=== PATIENT | male | born 1950 | race Caucasian/White ===

== ENCOUNTER → 2017-08-17 | Outpatient (CLI) | payer OTHER, MEDICARE ==
[~2017-08-17] VITALS: Ht 185.4 cm; Wt 112.4 kg
[~2017-08-17] MED LIST: ACETAMINOPHEN325 M1 PO; ADVAIR 500-501 EACH; AMARYL4 MG; ASPIRIN81 M2; ATIVAN1 MG; CARDIZEM CD180 MG; COUMADIN 5 MG TA5 M1 PO; COZAAR 50 MG TA50 M2; CRESTOR10 MG; DEMADEX100 MG; DEPAKOTE ER500 MG; ENOXAPARIN120 MG/0.8 SC; FLOMAX0.4 MG PO; HIBICLENS120 ML; HYDROCHLOROTHIA25 M2; HYDROCODONE-AP1 EAC6; IBUPROFEN 200200 M1; KLOR-CON 1010 MEQ; LASIX 40 MG TAB40 M1 PO; LEXAPRO20 MG; MAGNESIUM GLUC500 M1; METFORMIN HCL500 MG; MICARDIS40 MG PO; PACERONE 200 M200 M1 PO; POTASSIUM20 PO; PROAIR HFA8.5 GM
--- NOTE | ~2017-08-17 | HPC ---
[facility] [place] [address] PAIN MANAGEMENT CONSULTATION Name: FADI ELLIOTT Room #: REG [facility] Damaris.#: [id number] Admission: 08/17/17 Attend Phys: Vick Ventura MD Discharge: Date of : 54 Report #: [id number] THIS REPORT FOR: //name// CC: Seferino Ventura DATE OF SERVICE: 08/17/2017 Followup visit for cervical radiculopathy. The patient is a pleasant gentleman who I saw over 2 years ago for cervical radiculopathy. Over the course of 2 months, he received a cervical epidural injection. His pain was reduced. A month or two later, he received his third injection. He reports that his pain relief was substantial and has not returned until just recently. He now has pain at a level of 5/10 that begins in his neck and radiates as before into his right arm. He describes it as a sharp, tingling, burning sensations worsened by certain positions of his arm and activities. He has been able to alleviate some of his pain with medication and stretching, but it still is enough to limit his activities. He has range of motion difficulties, particularly in rotation. MEDICATIONS: Coumadin, Depakote, Ativan, Lexapro, Advair, Flomax. ALLERGIES: None. PAST MEDICAL HISTORY: Positive for non-insulin dependent diabetes, atrial fibrillation for which he takes Coumadin. He has COPD, history of chronic headaches and depression. SOCIAL HISTORY: He is retired, does not use tobacco, drinks alcohol on special occasions. REVIEW OF SYSTEMS: Positive for pain primarily, denies chest pains, shortness of breath, but does have dyspnea on exertion related to his COPD. PHYSICAL EXAMINATION: Blood pressure 159/97, heart rate 73, respirations 20. BMI is 32. He has lost over 50 pounds following bariatric surgery 2 years ago after his treatment here in our clinic. CHEST: Clear. CARDIAC: Rhythm today was noted to be regular. He does not appear to be in atrial fibrillation. SPINE: Examination of the cervical spine reveals restricted range of motion due to muscle tension and spasm. He has reduction in neck extension and rotation to each side by about 30%. EXTREMITIES: Deep tendon reflexes are absent throughout the upper extremities consistent with his last visit. In the lower extremities, there is a slight [facility] [address] [place] [address] PAIN MANAGEMENT CONSULTATION Name: FADI ELLIOTT Room #: REG [facility] Damaris.#: [id number] Admission: 08/17/17 Attend Phys: Vick Ventura MD Discharge: Date of : 54 Report #: [id number] increase from previous visit in his knee reflexes at 2+, but there is no evidence of clonus. Strength throughout the upper and lower extremities is judged to be normal with no asymmetry. MRI shows cervical degenerative disk disease with neural foraminal stenosis. IMPRESSION: Cervical radiculopathy with excellent response to cervical epidural injection at C6-C7, last in 05/2015. RECOMMENDATIONS: 1. These symptoms have only been going on for about 10 days. I would like to wait 2 weeks and if he is not better, then bring him back in for cervical epidural injection given his good response. He was given instructions for gentle range of motion exercises. If he is not better in 2 weeks, he will stop his Coumadin 5 days before, come in for an INR check before, and I will repeat the cervical epidural injection. Questions were asked and answered. By: 1617 1858 Vick Ventura MD /nt
[2017-08-17 13:43] VITALS: BP 159/97
== END ==
LOC: PAIN 07:24
DX: M54.12 Radiculopathy, cervical region (principal); E11.9 Type 2 diabetes mellitus without complications; J44.9 Chronic obstructive pulmonary disease, unspecified; I48.91 Unspecified atrial fibrillation; F32.9 Major depressive disorder, single episode, unspecified

== ENCOUNTER → 2018-06-29 | Outpatient (CLI) | payer OTHER, MEDICARE | LOC: RAD 14:44 | DX: M25.561 Pain in right knee (principal) ==

== ENCOUNTER → 2018-07-05 | Outpatient (CLI) | payer OTHER, MEDICARE ==
[~2018-07-05] VITALS: Ht 185.4 cm; Wt 116.0 kg
[~2018-07-05] MED LIST changes: +NORCO 5-325 TA1 EACH PO
--- NOTE | ~2018-07-05 | HPC ---
[facility] [place] [address] PAIN MANAGEMENT CONSULTATION Name: FADI ELLIOTT Room #: REG CL M..#: [id number] Admission: 07/05/18 ������������������ Attend Phys: Vick Ventura MD Discharge: ������������������ Date of : 54 Report #: [id number] THIS REPORT FOR: //name// CC: Seferino Ventura DATE OF SERVICE: 07/05/2018 Followup visit for chronic right knee pain. This is a followup visit for the patient who complains of pain in the right knee. Plain film x-rays have been performed and showed mild degenerative changes. We do not have advanced imaging and an MRI may show more significant changes. He has had a favorable response to previous knee injection and is preparing to travel to [facility] and would like to repeat the injection today. He has responded nicely to injections in the past including a cervical epidural injection. PQRS: 1. He has a history of osteoarthritis. 2. He is obese with a BMI of 33.8. Weight loss strategies have been discussed. 3. He is not hypertensive nor does he take medication. 4. He is on the blood thinner, warfarin due to a history of atrial fibrillation. 5. No history of chronic opioid use, although we have agreed that an emergency prescription for [place] if he has severe pain, particularly during his travel would be reasonable and I have agreed to provide him #30 tablets of hydrocodone 5/325. SOCIAL HISTORY: He denies use of tobacco, drinks wine in a social setting every other day or so. PHYSICAL EXAMINATION: Pleasant gentleman, outgoing. Blood pressure 105/67, heart rate 77, mildly overweight with a BMI of 33.8. He walks with antalgic features. The knee is painful and tender with movements, particularly lateral movements and medial movement. There does not appear to be any instability with drawer test. No effusion or swelling is present. X-ray is essentially negative other than some mild degenerative changes. IMPRESSION: Severe right knee pain with osteoarthritis. RECOMMENDATIONS: Knee injection under fluoroscopic guidance. If not improved, then we will send him off for an orthopedic evaluation. DESCRIPTION OF PROCEDURE: He was taken to the fluoroscopic suite. Skin prepped [address] [address] PAIN MANAGEMENT CONSULTATION Name: FADI ELLIOTT BABAR Room #: REG Veronica Garay#: [id number] Admission: 07/05/18 ������������������ Attend Phys: Vick Ventura MD Discharge: ������������������ Date of : 54 Report #: [id number] with ChloraPrep. A 25-gauge needle was gently advanced into the joint space in subpatellar medial approach. 0.25 mL of Omnipaque was injected demonstrating arthrogram followed by 4 mL of 0.5% bupivacaine and 40 mg of triamcinolone. He tolerated the procedure well. Pain was 0 in recovery room. Followup visit as needed. ��������������������������������������������� ���������������������������������������� By: ��������������������������������������������� 1500 2354 Vick Ventura MD /nt
[2018-07-05 09:21] LABS: PROTIME 10.5 Seconds (9.3-11.4)
[2018-07-05 10:06] VITALS: BP 105/67
--- NOTE | 2018-07-05 10:32 | NUR ---
Pain Clinic Assessment: 1. History of Osteoarthritis: History of Rheumatoid Arthritis: 2. Height: 6 ft. 1 in. 185.4 cm. Weight: 255.8 lb. oz. 116.030 kg. Patient's BMI: 33.8 3. Vital Signs: BP: 105/67 Pulse: 77 Resp: 16 Temp: 02 Sat: 96 ECG Mon: 4. Pain Intensity: 5 5. Fall Risk: Dizziness: N Needs help standing or walking: N Fallen in the last 3 months: N Fall risk comments: 6. Patient on Blood Thinner: Warfarin (Coumadin) 7. History of Hypertension: N 8. Opioid Therapy greater than 6 weeks: N Opiate Contract Signed: 9. Risk Assessment Tool Provided: 10. Functional Assessment Tool: 11. Recreational Drug Use: Never Drug Type: Tobacco Use: Never Smoker Tobacco Type: Amount or Packs/day: How Many Years: Alcohol Use: Yes Frequency: Quant: 6 OZ WINE QOD
== END | disposition home or self-care (01) ==
LOC: PAIN 07:01
PROVIDERS: Anesthesiology Pain Medicine
DX: M17.11 Unilateral primary osteoarthritis, right knee (principal); G89.29 Other chronic pain; E66.09 Other obesity due to excess calories; I48.91 Unspecified atrial fibrillation; Z68.33 Body mass index [BMI] 33.0-33.9, adult; Z79.01 Long term (current) use of anticoagulants

== ENCOUNTER 2019-04-11 16:59 | Inpatient (IN) | payer OTHER, MEDICARE ==
[~2019-04-11] VITALS: Ht 182.9 cm; Wt 117.9 kg
[~2019-04-11 16:59] MED LIST changes: +DEPAKOTE ER500 M1 PO; -DEPAKOTE ER500 MG; -LEXAPRO20 MG; +LEXAPRO20 MG PO
[2019-04-11 17:14] VITALS: BP 130/96
[2019-04-11 17:53] LABS: ABSOLUTE NEUTROPHILS 5.8 thou/uL (1.4-8.2); EOSINOPHILS 0.9 % (0.0-3.0); HEMATOCRIT 43.9 % (42.0-52.0); HEMOGLOBIN 14.2 gm/dL (14.0-18.0); MCH 30.8 pg (26.0-34.0); MCHC 32.4 g/dL (28.0-37.0); MCV 95.2 fL (80.0-100.0); MONOCYTES 8.3 % (1.0-8.0); PLATELET COUNT 321 thou/uL (150-400); POLYS 66.8 % (36.0-66.0); RBC 4.61 mil/uL (4.50-6.00); RDW 14.1 % (10.5-14.5); WBC 8.7 thou/uL (4.0-11.0)
[2019-04-11 18:00] LABS: POTASSIUM 4.3 mmol/L (3.5-5.1)
[2019-04-11 18:07] LABS: ALBUMIN 3.8 g/dL (3.4-5.0); TOTAL BILIRUBIN 0.6 mg/dL (<0.1-1.0); TOTAL PROTEIN 7.2 g/dL (6.4-8.2)
[2019-04-11 18:21] LABS: APTT 27.3 Seconds (24.5-32.8); INR 1.3; PROTIME 13.9 Seconds (9.3-11.4)
[2019-04-11 19:48] VITALS: BP 123/67
[2019-04-11 20:36] VITALS: BP 105/63
[2019-04-11 20:59] VITALS: BP 134/80
--- NOTE | 2019-04-11 21:00 | NUR ---
Pt. admitted to the unit from the emergency room accompanied by staff. He is alert and oriented. Denies any kind of pain or discomfort at this time. Ambulated to the bathroom with standby assistance. No active bleeding observed. Admission assessment and history is completed.
[2019-04-11] MEDS ORDERED: COUMADIN6 MG PO (21:02)
[2019-04-12 00:52] VITALS: BP 115/75
[2019-04-12 05:02] VITALS: BP 132/84
--- NOTE | 2019-04-12 05:04 | NUR ---
Pt. rested quietly during the night when checked on during frequent rounds. He offers no c/o pain and no active bleeding observed.
[2019-04-12 06:32] LABS: HEMATOCRIT 34.5 % (42.0-52.0); MCHC 32.4 g/dL (28.0-37.0); MCV 95.7 fL (80.0-100.0); RBC 3.61 mil/uL (4.50-6.00); WBC 7.8 thou/uL (4.0-11.0)
[2019-04-12 06:44] LABS: HEMOGLOBIN 11.2 gm/dL (14.0-18.0)
[2019-04-12 07:00] LABS: CALCIUM 8.1 mg/dL (8.5-10.1); CREATININE 0.9 mg/dL (0.7-1.3); POTASSIUM 3.7 mmol/L (3.5-5.1)
[2019-04-12 07:42] VITALS: BP 135/70
--- NOTE | 2019-04-12 10:12 | NUR ---
INITIAL ASSESSMENT: Pt evaluated for d/c planning needs. Reviewed chart and spoke with nurse, pt and pt's friend. Pt is alert and oriented. Pt lives alone in house and was independent with ADL's prior to admission to the hospital. Pt has walker and cane at home, but does not use them. Pt said he has CPAP at home, but has not been using that recently. Pt has not had home health in the past. Pt plans on returning home on d/c from hospital. Will remain available to assist as needed.
[2019-04-12 11:20] VITALS: BP 136/85
--- NOTE | 2019-04-12 18:43 | NUR ---
Assumed care approx. 0700 this AM. Patient home meds restarted besides coumadin per Dr. Conde request via telephone order. Patient given 0.5 mg PO ativan for anxiousness. Plan for EGD/ colon tomorrow, consent signed. Been waiting on golytely from pharmacy for almost 2 hours... A hold acknowledge has been placed in the computer for the medication. Full liquid diet started this afternoon. Patient will be NPO at midnight for procedure. Patient progressing toward goals.
[2019-04-12 19:47] VITALS: BP 121/82
[2019-04-13 04:45] VITALS: BP 143/93
--- NOTE | 2019-04-13 05:09 | NUR ---
Patient advised he had a headache that was worseining, and rated it 7/10. Nursing contacted the on-call provider and got an order for 1000mg Tylenol PRN, which was administered. Patient later advised his pain was partially relieved at 5/10 on the numeric pain scale. Nursing will continue to monitor.
[2019-04-13 07:58] VITALS: BP 145/88
[2019-04-13 15:15] LABS: HEMATOCRIT 36.1 % (42.0-52.0); HEMOGLOBIN 11.8 gm/dL (14.0-18.0)
[2019-04-13 15:33] VITALS: BP 113/69
--- NOTE | 2019-04-13 19:31 | NUR ---
PATIENT HAD EGD AND COLONOSCOPY TODAY TOLERATED WELL. NO BLEEDING NOTED. PROGRESSING TOWARDS POC GOALS.
[2019-04-13 20:34] VITALS: BP 139/81
--- NOTE | 2019-04-14 04:05 | NUR ---
SLEPT PART OF SHIFT. UP WITH STEADY GAIT. DENIES COMPLAINTS OF PAIN OR SHORTNESS OF AIR. DENIES ANY GI BLEEDING THIS SHIFT. WORKING ON GOALS AND PLAN OF CARE FOR NOC. PROGRESSING SLOWLY TOWARDS DISCHARGE GOALS. CONTINUE TO ASSES CLOSELY.
[2019-04-14 04:50] VITALS: BP 147/70
[2019-04-14 07:23] VITALS: BP 133/81
[2019-04-14] MEDS ORDERED: LORAZEPAM 0.50.5 MG PO (08:37)
[2019-04-14] MEDS ORDERED: FLOMAX0.4 MG PO (08:37)
[2019-04-14] MEDS ORDERED: DIVALPROEX SOD500 M1 PO (08:37)
[2019-04-14] MEDS ORDERED: PROTONIX40 M1 PO (08:37)
[2019-04-14] MEDS ORDERED: TYLENOL EXTRA500 MG PO (08:37)
[2019-04-14] MEDS ORDERED: LEXAPRO20 MG PO (08:37)
[2019-04-14 08:56] VITALS: BP 133/81
[2019-04-14 11:34] VITALS: BP 145/86
--- NOTE | 2019-04-14 13:31 | NUR ---
progressing towards poc goals. dc to home now.
--- NOTE | 2019-04-18 19:36 | H ---
[facility] [place] [address] [place] [address] HISTORY AND PHYSICAL Name: FADI ELLIOTT Room #: 360-P [facility] IN M.R.#: [id number] Admission: 04/11/19 Attend Phys: Arelis Alfaro MD Discharge: 04/14/19 Date of : 54 Report #: [id number] THIS REPORT FOR: //name// CC: Seferino Alfaro DATE OF SERVICE: 04/11/2019 HISTORY OF PRESENT ILLNESS: This is a patient well known to my service, 68 years of age with GI bleed. This is a patient who came into the office and was pale, weakened and examination confirmed an obvious melanotic bloody stool on rectal examination, at which point he was referred to the Emergency Room and subsequently admitted. PAST MEDICAL HISTORY: Significant for previous bariatric surgery. He has hypertension, atrial fibrillation and he is on Coumadin. He has had a previous tonsillectomy. 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 MEDICATIONS: List includes warfarin, Depakote, Lexapro, Coumadin, Ativan and Flomax. ALLERGIES: No known allergies. FAMILY HISTORY: Noncontributory. SOCIAL HISTORY: No smoking, but does use alcohol socially. REVIEW OF SYSTEMS: No chest discomfort or tightness in his chest, no shortness of breath, but is weakened. PHYSICAL EXAMINATION: GENERAL: In the office showed him to have stable vital signs; however, he looked pale and was orthostatic symptom dalal when he stood up. HEENT: Otherwise, negative. NECK: Supple, without thyromegaly or adenopathy. CHEST: Clear. CARDIOVASCULAR: Showed a regular rhythm without murmur. ABDOMEN: Soft and nontender. EXTREMITIES: Negative. RECTAL: Showed hemoccult positive stool, it was obviously bloody. LABORATORY PARAMETERS: Show a hemoglobin of 14 with an INR of 1.3. ASSESSMENT: This is a patient with gastrointestinal bleed, currently stable with an upper gastrointestinal source seems most likely whether this is related to an ulcer or somehow related to his bariatric surgery is not clear. I do not [facility] [address] [address] HISTORY AND PHYSICAL Name: EARLFADI BABAR Room #: 360-P [facility] IN M.R.#: [id number] Admission: 04/11/19 Attend Phys: Arelis Alfaro MD Discharge: 04/14/19 Date of : 54 Report #: [id number] have any history to suggest that he has cirrhosis or varices seem less likely, but EGD is needed along with acid suppression and inpatient management. <ELECTRONICALLY SIGNED> By: Seferino Conde MD 04/18/19 1936 1042 1230 Seferino Conde MD /PMT
--- NOTE | 2019-04-19 09:26 | PATH ---
[facility] [place] [place] [address] PATHOLOGY RPT PROCEDURE Name: BOB ELLIOTT BABAR Room #: 360-P [facility] IN M.R.#: [id number] Admission: 04/11/19 Date of : 54 Discharge: 04/14/19 Report #: [id number] Path Case #: [id number] [facility] Accession Number: [id number] . 01 Material submitted: . PART A: colon - POLYP AT PROXIMAL ASCENDING COLON X2. Modifiers: proximal, ascending PART B: hepatic flexure - POLYP AT HEPATIC FLEXURE PART C: colon - POLYP AT DISTAL TRANSVERSE COLON. Modifiers: distal, transverse PART D: colon - POLYP AT DESCENDING COLON. Modifiers: descending . 01 Clinical history: . Melena . 02 Diagnosis: A. Colon, proximal ascending, biopsy: - Adenomatous polyps, two. . B. Colon, hepatic flexure, biopsy: - Adenomatous polyp. . C. Colon, distal transverse, biopsy: - Adenomatous polyp. . D. Colon, descending, biopsy: - Hyperplastic polyp. (SKM:mike; 04/18/2019) [facility] 04/18/2019 0826 Local . 02 Electronically signed: . Bob Rao MD, Pathologist NPI- [id number] . 01 Gross description: . A. The specimen is received in formalin, labeled "Bob Elliott, polyp at proximal ascending colon". Received are two segments of pale langston soft tissue ranging in size from 0.3 to 0.4 cm in maximum dimensions. The specimen is submitted entirely in cassette A1. . B. The specimen is received in formalin, labeled "Bob Elliott, polyp at hepatic flexure". Received is a segment of pale langston soft tissue measuring 0.4 cm in maximum dimensions. The specimen is submitted entirely in cassette B1. . C. The specimen is received in formalin, labeled "Bob Elliott, polyp at distal transverse colon". Received [place] [address] PATHOLOGY RPT PROCEDURE Name: BOB ELLIOTT Room #: 360-P [facility] IN M.R.#: [id number] Admission: 04/11/19 Date of : 54 Discharge: 04/14/19 Report #: [id number] Path Case #: [id number] brown soft tissue measuring 0.8 x 0.6 x 0.5 cm in greatest dimensions. The surgical margin is inked and the segment is bisected. The specimen is submitted entirely in cassette C1. . D. The specimen is received in formalin, labeled "Bob Elliott, polyp at descending colon". Received is a segment of pale langston soft tissue measuring 0.4 cm in maximum dimensions. The specimen is submitted entirely in cassette D1. (CAA; 04/15/2019) QA/QA 04/15/2019 1150 Local . 02 Pathologist provided ICD-10: D12.2, D12.3, K63.5 . 02 CPT . 435508, 585303, 306059, 231335 Specimen Comment: A courtesy copy of this report has been sent to [phone] Specimen Comment: Report sent to Specimen Comment: A duplicate report has been generated due to demographic updates. Performed at: [address], [place] [id number] MD Butch Morales MD Phone: [phone] Performed at: [address] [id number] MD Marjorie Land MD Phone: [phone]
[2019-04-20] MEDS ORDERED: TRAZODONE 150150 M1 PO (00:22)
--- NOTE | 2019-04-20 05:34 | P ---
[facility] [place] [address] PROCEDURE REPORT Name: FADI ELLIOTT Room #: 360-P [facility] IN M.R.#: [id number] Admission: 04/11/19 Attend Phys: Arelis Alfaro MD Discharge: 04/14/19 Date of : 54 Report #: [id number] THIS REPORT FOR: //name// CC: Kelechi Alfaro MD PROCEDURE: Diagnostic esophagogastroduodenoscopy. He is a patient of Dr. Kelechi Conde and Dr. Arelis Nick. INDICATIONS FOR PROCEDURE: Evaluate melena of undetermined etiology. The patient is status post gastric bypass surgery for weight loss purposes. Informed consent for this procedure was obtained prior to the administration of any medication. The risks of the procedure, which include bleeding, perforation, infection, complications of sedation and the possibility I could miss something were explained to the patient, he has indicated his consent by signing. Propofol was slowly titrated before and during this procedure for patient comfort by the Anesthesia service. DESCRIPTION OF PROCEDURE: With the patient in the left lateral decubitus position, the Olympus upper videoscope was introduced through the upper esophageal sphincter and advanced under direct visualization to the depth of insertion of the scope. Findings are noted on withdrawal of the scope. The visualized small intestinal mucosa appears intact without any evidence of any erythema or ulceration. The stomach remnant as the patient is status post gastric bypass surgery appears normal except for the following: There are 3 white based flat nonbleeding ulcers on the lesser curvature of the stomach that are not bleeding and have no stigmata of recent bleed visible. Other than that, the gastric remnant appears normal. The scope was withdrawn into the esophagus. The Z-line is appropriately located at the top of the gastric folds and appears normal. The esophageal mucosa appears normal throughout its entirety. The scope was withdrawn. The patient was turned for colonoscopy. IMPRESSION: 1. Evidence of gastric bypass surgery noted. 2. Three nonbleeding flat white based ulcerations without stigmata of recent bleed noted in the gastric remnant. 3. Normal esophageal mucosa. RECOMMENDATIONS: As follows: I would recommend continuing proton pump inhibitors and monitoring his H and H closely. We will check a stool for H. pylori antigen and we will proceed with colonoscopy at this time. [address] [address] PROCEDURE REPORT Name: ELLIOTTFADI Room #: 360-P [facility] IN ..#: [id number] Admission: 04/11/19 Attend Phys: Arelis Alfaro MD Discharge: 04/14/19 Date of : 54 Report #: [id number] Thank you very much once again for allowing me to participate in his care, Dr. Conde and Dr. Nick. <ELECTRONICALLY SIGNED> By: Padma Arriaga DO 04/20/19 0534 1359 1645 Padma Arriaga DO /nt
--- NOTE | 2019-04-20 05:34 | P ---
[facility] [place] [address] PROCEDURE REPORT Name: FADI ELLIOTT Room #: 360-P [facility] IN M.R.#: [id number] Admission: 04/11/19 Attend Phys: Arelis Alfaro MD Discharge: 04/14/19 Date of : 54 Report #: [id number] THIS REPORT FOR: //name// CC: Kelechi Alfaro MD DATE OF SERVICE: 04/13/2019 PROCEDURE: Colonoscopy with snare polypectomy. He is a patient of Dr. Kelechi Conde and Dr. Arelis Alfaro. INDICATION FOR PROCEDURE: After the risks of the procedure were explained to the patient, he indicated his consent to proceed by signing. The following risks include but are not limited to bleeding, perforation, infection, complications of sedation and the possibility I could miss something were explained to the patient. DESCRIPTION OF PROCEDURE: With the patient in the left lateral decubitus position, a digital rectal exam was done and no abnormalities were palpated. Then, the Olympus colonoscope was introduced through the anal sphincter and advanced under direct visualization to the terminal ileum. Findings are noted on withdrawal of the scope. The terminal ileal mucosa appears normal. Cecum, normal mucosa. In the proximal ascending colon, there were 2 small polyps, both less than 5 mm in size that were removed in toto with a hot snare and sent to pathology lab. Good hemostasis was noted after those polypectomies. The remaining ascending colonic mucosa appears normal. Hepatic flexure, normal mucosa. Transverse colon, in the distal transverse colon, there is a small polyp less than 5 mm in diameter that was removed in toto with a hot snare and sent to pathology lab. Good hemostasis was noted after that polypectomy. The remaining transverse colonic mucosa appears normal. Splenic flexure, normal mucosa. Descending colon, at approximately 50 cm in the descending colon, there is a fourth polyp. It is less than 5 mm in size and it is ensnared and removed and sent to pathology lab. Good hemostasis was noted after all polypectomies. The remaining descending colonic mucosa appears normal. Sigmoid colon, there are a few uncomplicated diverticula, but they are very rare in the sigmoid colon. Rectum, normal mucosa. Retroflex view did not reveal any further abnormalities. The scope was withdrawn. The patient went to the recovery area in stable condition. He tolerated the procedure well. IMPRESSION: 1. Multiple colon polyps removed from proximal ascending, distal transverse and descending colon as above and sent to pathology lab. 2. Uncomplicated rare sigmoid diverticula were seen. [address] [address] PROCEDURE REPORT Name: FADI ELLIOTT BABAR Room #: 360-[facility] IN M.R.#: [id number] Admission: 04/11/19 Attend Phys: Arelis Alfaro MD Discharge: 04/14/19 Date of : 54 Report #: [id number] 3. Other than that, normal colonoscopic exam to the terminal ileum. Recommendations are as follows: I am not sure that the source of this patient's melena has been explained by EGD or colonoscopy and I would recommend that a small intestinal video capsule be done to evaluate the small intestine further for sources of bleeding and melena. Thank you very much once again for allowing me to participate in his care. I must mention also that I saw no evidence of melanotic stool in his colon, but this was after a full colon prep. <ELECTRONICALLY SIGNED> By: Padma Arriaga DO 04/20/19 0534 1404 1636 Padma Arriaga DO /nt
--- NOTE | 2019-04-30 08:42 | D ---
[facility] [place] [address] DISCHARGE SUMMARY Name: FADI ELLIOTT Room #: 360-[facility] IN .R.#: [id number] Admission: 04/11/19 Attend Phys: Arelis Alfaro MD Discharge: 04/14/19 Date of : 54 Report #: [id number] THIS REPORT FOR: //name// CC: Seferino Alfaro DATE OF SERVICE: 04/13/2019 ATTENDING PHYSICIAN: Dr. Alfaro DICTATING PHYSICIAN: Dr. Alfaro. REASON FOR HOSPITALIZATION: GI bleed and black tarry stools with low blood pressure. HISTORY OF PRESENT ILLNESS: The patient is a 68-year-old gentleman with known history of morbid obesity with gastric bypass surgery and chronic atrial fibrillation, on Coumadin, presented to the Emergency Room having blood in his stools. The patient was noted to be orthostatic and had melanotic stools. The patient was admitted to the hospital, kept n.p.o. and had upper and lower GI workup. The patient had a normal colonoscopy. The upper endoscopy showed evidence of gastric ulcers with no evidence of active bleeding. The patient was taken off the Coumadin and he remained medically stable with his hemoglobin remaining stable at around 11 grams throughout his stay. The patient tolerated regular diet and was discharged to home to follow up with Dr. Kelechi Conde in a week's time. FINAL DIAGNOSES: 1. Lower gastrointestinal bleed, suspect from small bowel. 2. Atrial fibrillation, to hold Coumadin. 3. Orthostatic hypotension, which improved. 4. Obesity. 5. Gastric ulcers. DISPOSITION: The patient is being discharged to home to continue on regular diet and to stay off the Coumadin and follow up with Dr. Kelechi Conde in a week's time. <ELECTRONICALLY SIGNED> By: Arelis Alfaro MD 04/30/19 0842 [id number] [id number] Arelis Alfaro MD /nt
== END 2019-04-14 13:37 | disposition home or self-care (01) | DRG 378 ==
LOC: ER 16:59 → 3W 18:58 → EROBS 18:58 → 3W 20:46
PROVIDERS: Emergency Medicine; Internal Medicine; ADMIT Internal Medicine
PROC: 0DJ08ZZ Inspection of Upper Intestinal Tract, Via Natural or Artificial Opening Endoscopic (ICD-10-PCS; principal; 2019-04-11)
PROC: 0DBL8ZZ Excision of Transverse Colon, Via Natural or Artificial Opening Endoscopic (ICD-10-PCS; 2019-04-13)
PROC: 0DBK8ZZ Excision of Ascending Colon, Via Natural or Artificial Opening Endoscopic (ICD-10-PCS; 2019-04-13)
PROC: 0DBM8ZZ Excision of Descending Colon, Via Natural or Artificial Opening Endoscopic (ICD-10-PCS; 2019-04-13)
DX: K57.31 Diverticulosis of large intestine without perforation or abscess with bleeding (principal); D62 Acute posthemorrhagic anemia; K25.4 Chronic or unspecified gastric ulcer with hemorrhage; I95.1 Orthostatic hypotension; I48.91 Unspecified atrial fibrillation; I10 Essential (primary) hypertension; E66.9 Obesity, unspecified; F32.9 Major depressive disorder, single episode, unspecified; D64.9 Anemia, unspecified; Z68.35 Body mass index [BMI] 35.0-35.9, adult; Z98.84 Bariatric surgery status; Z79.899 Other long term (current) drug therapy
CPT/HCPCS: 10879; 62110; 62900; 70005

== ENCOUNTER → 2019-04-18 | Outpatient (CLI) | payer OTHER, MEDICARE ==
[~2019-04-18] MED LIST changes: +BUPROPION XL300 MG PO; +COUMADIN6 MG PO; +COZAAR 25 MG TA25 M1 PO; +DILTIAZEM ER180 M2 PO; +DIVALPROEX SOD500 M1 PO; +LORAZEPAM 0.50.5 MG PO; +LOVASTATIN 20 M20 MG PO; +PROTONIX40 M1 PO; +PROTONIX40 M2 PO; +TRAZODONE 150150 M1 PO; +TYLENOL EXTRA500 MG PO
[2019-04-18 18:01] LABS: ALBUMIN 3.9 g/dL (3.4-5.0); CALCIUM 9.3 mg/dL (8.5-10.1); CREATININE 1.4 mg/dL (0.7-1.3); POTASSIUM 3.9 mmol/L (3.5-5.1); TOTAL BILIRUBIN 2.5 mg/dL (<0.1-1.0); TOTAL PROTEIN 7.3 g/dL (6.4-8.2)
== END ==
LOC: LAB 16:46
PROVIDERS: Internal Medicine
DX: M47.814 Spondylosis without myelopathy or radiculopathy, thoracic region (principal); M48.04 Spinal stenosis, thoracic region; J98.11 Atelectasis

== ENCOUNTER 2019-04-19 19:51 | Inpatient (IN) | payer OTHER, MEDICARE ==
[~2019-04-19] VITALS: Ht 182.9 cm; Wt 121.1 kg
--- NOTE | ~2019-04-19 | D ---
[facility] [place] [address] [address] DISCHARGE SUMMARY Name: FADI ELLIOTT BABAR Room #: 360-P ADM IN M.R.#: [id number] Admission: 04/19/19 Attend Phys: Angel Luis Oneil Discharge: Date of : 54 Report #: [id number] THIS REPORT FOR: //name// CC: Seferino Conde FINAL DIAGNOSES: 1. Chronic cholecystitis. 2. Atrial fibrillation. 3. Pulmonary embolus. 4. Anemia due to gastrointestinal blood loss. 5. Acute hypoxic respiratory failure. 6. Moderate protein-calorie malnutrition. HOSPITAL COURSE: The patient was admitted from home with chills and concern for possible infection. Ultimately, a diagnosis of cholecystitis was made. He was seen by [facility] Surgery Services along with ID. At initial admission, he had difficulty with rapid atrial fibrillation and Cardiology was involved. After investigation and studies, ultimately underwent a laparoscopic cholecystectomy by Dr. Solano. Pathology revealed chronic cholecystitis. There are still concerns for other underlying diseases and he had additional lab data and CT imaging. Only other pertinent finding on CT chest was bilateral pulmonary emboli and a 1.5 cm on nonspecific lymph node. He was treated with heparin for anticoagulation. He underwent M2 capsule study of the small bowel with no signs of bleeding. Coumadin was reinitiated. Hemoglobin remained stable and actually improved with iron infusions. He finished a course of IV and then oral antibiotics. He had no other interval complication. By the time of discharge, his INR was 2.1. He was tolerating a regular diet, walking the halls and has been weaned off oxygen. He had no further fever, chills or elevated white count. Previous blood cultures were all negative. PHYSICAL EXAMINATION: VITAL SIGNS: On the day of discharge, his vital signs were stable. LUNGS: Clear. HEART: Regular. ABDOMEN: Soft, normoactive bowel sounds. EXTREMITIES: No edema. DISPOSITION: He is discharged to home with diet and activity as tolerated, resume all home medications plus restarting Coumadin 7 mg alternating with 10 mg with INRs through Dr. Treadwell's office. Follow up with Dr. Conde in 10 days. By: 1154 1225 Daniel Yang MD /nt
--- NOTE | ~2019-04-19 | O ---
[facility] [place] [address] OPERATIVE REPORT Name: FADI ELLIOTT Room #: 356-P ADM IN M.R.#: [id number] Admission: 04/19/19 Attend Phys: Angel Luis Oneil Discharge: Date of : 54 Report #: [id number] THIS REPORT FOR: //name// CC: Kelechi Arriaga DO PREOPERATIVE DIAGNOSES: Cholecystitis with cholelithiasis. POSTOPERATIVE DIAGNOSES: Cholecystitis with cholelithiasis with finding of a small stone in the common duct. SURGEON: Harjinder Solano MD ANESTHESIA: General anesthesia. COMPLICATIONS: None. ESTIMATED BLOOD LOSS: 10 mL. PROCEDURE NOTE: With the patient under general anesthesia, abdomen was prepped and draped in sterile fashion. Transverse incision was made in the epigastrium about 3 inches above the umbilicus due to the patient's obese abdomen. The incision was about 2 cm. After incising through the skin fascia was identified. Fascia was then opened under visualization, 0 Vicryl suture placed on the fascia for retraction. Veress needle was then placed through the peritoneum. Abdominal cavity was insufflated with CO2. After creating pneumoperitoneum, as 11 mm trocar was placed through the fascia into the peritoneum. Under visualization, two 5 mm trocars were placed in the right upper quadrant and a 5 mm trocar in right epigastrium. The patient did have quite a bit of fat in the abdomen. The gallbladder was identified. The gallbladder did have some adhesions proximally. Gallbladder was also fairly distended. A needle was used to aspirate the bile. The bile was sent for culture. The bile did not look purulent to me. The proximal part of the gallbladder was then identified. The cystic duct was isolated. Common duct was underneath a significant amount of fat that was not able to be visualized. Cystic duct was moderately dilated. A clip was placed in junction of cystic duct to the gallbladder. Opening was made in the cystic duct. Cholangiogram catheter was placed. Fluoroscopic cholangiogram was obtained. Common duct filled out well and there is a persistent filling defect that I can see measuring about 2 x 3 mm. I did repeat cholangiogram by flushing the duct with saline and then reinjecting. The defect seemed to persist in, the distal duct. There was no obstruction. Dye flowed into the duodenum. Cholangiogram catheter identifying the cystic duct. The cystic duct did not appear dilated on the cholangiogram. The cholangiogram catheter was then removed. The proximal cystic duct was then clipped x 2 and then divided. Cystic artery was then isolated, clipped x 2 proximally and once [address] [address] OPERATIVE REPORT Name: FADI ELLIOTT Room #: 356-P [facility] IN M.R.#: [id number] Admission: 04/19/19 Attend Phys: Angel Luis Oneil Discharge: Date of : 54 Report #: [id number] distally and then divided. Gallbladder was able to be freed without difficulty. The gallbladder placed in specimen bag. Gallbladder was retrieved through the 11 mm trocar site. Gallbladder was opened, rest of the bile suctioned out and then the fascia had to be enlarged slightly and then the gallbladder with the stone came out. The gallbladder contained multiple stones. There were several smaller size stones that kind of resembled the stone defect that I see in the duct. Liver bed was checked, hemostasis excellent. Trocars removed. CO2 was evacuated. The fascia defect at the 11 mm trocar was closed with [id number] 0 Vicryl, 5-0 PDS was used to close skin incision. Steri-Strip, Band-Aids applied. The patient tolerated the procedure well. By: 1434 1513 Harjinder Solano MD /nt
[~2019-04-19 19:51] MED LIST changes: -BUPROPION XL300 MG PO; -COZAAR 25 MG TA25 M1 PO; -DILTIAZEM ER180 M2 PO; -LOVASTATIN 20 M20 MG PO; -PROTONIX40 M2 PO; -TRAZODONE 150150 M1 PO
[2019-04-19 19:56] VITALS: BP 121/86
[2019-04-19 20:47] LABS: HEMATOCRIT 38.4 % (42.0-52.0); HEMOGLOBIN 12.7 gm/dL (14.0-18.0); MCH 31.1 pg (26.0-34.0); MCHC 33.2 g/dL (28.0-37.0); MCV 93.8 fL (80.0-100.0); PLATELET COUNT 382 thou/uL (150-400); RBC 4.09 mil/uL (4.50-6.00); RDW 14.3 % (10.5-14.5); WBC 6.7 thou/uL (4.0-11.0)
[2019-04-19 21:01] LABS: ANION GAP 10 mmol/L (7-16); BUN 25 mg/dL (7-18); CALCIUM 8.8 mg/dL (8.5-10.1); CHLORIDE 100 mmol/L (98-107); CO2 25 mmol/L (21-32); CREATININE 1.1 mg/dL (0.7-1.3); GLUCOSE 149 mg/dL (74-106); PROTIME 10.6 Seconds (9.3-11.4); SODIUM 135 mmol/L (136-145)
[2019-04-19 21:11] LABS: ALBUMIN 3.5 g/dL (3.4-5.0); SGOT 60 U/L (15-37); SGPT 140 U/L (30-65); TOTAL BILIRUBIN 1.1 mg/dL (<0.1-1.0); TOTAL PROTEIN 7.5 g/dL (6.4-8.2); TROPONIN-I <0.06 ng/mL (<0.06)
[2019-04-19 22:12] LABS: ABSOLUTE NEUTROPHILS 3.6 thou/uL (1.4-8.2); PLATELET ESTIMATE NORMAL
[2019-04-20] VITALS (36 sets, daily range): BP systolic 107–166; BP diastolic 56–112
[2019-04-20] MEDS ORDERED: DILTIAZEM ER180 M2 PO (00:12)
[2019-04-20] MEDS ORDERED: LOVASTATIN 20 M20 MG PO (00:19)
[2019-04-20] MEDS ORDERED: COZAAR 25 MG TA25 M1 PO (00:19)
[2019-04-20] MEDS ORDERED: BUPROPION XL300 MG PO (00:20)
[2019-04-20] MEDS ORDERED: PROTONIX40 M2 PO (00:21)
[2019-04-20] MEDS ORDERED: TRAZODONE 150150 M1 PO ×2 (00:22)
[2019-04-20 02:37] LABS: HEMATOCRIT 34.7 % (42.0-52.0); HEMOGLOBIN 11.1 gm/dL (14.0-18.0); MCHC 31.9 g/dL (28.0-37.0); MCV 94.1 fL (80.0-100.0); RBC 3.68 mil/uL (4.50-6.00); RDW 14.5 % (10.5-14.5); WBC 6.5 thou/uL (4.0-11.0)
[2019-04-20 03:08] LABS: ALBUMIN 2.8 g/dL (3.4-5.0); CALCIUM 8.2 mg/dL (8.5-10.1); CREATININE 0.9 mg/dL (0.7-1.3); POTASSIUM 4.3 mmol/L (3.5-5.1); TOTAL PROTEIN 6.3 g/dL (6.4-8.2)
[2019-04-20 06:43] LABS: AMP/METHAMP Negative (Negative); BARBITURATES Negative (Negative); BENZODIAZEPINES Negative (Negative); COCAINE Negative (Negative); METHADONE Negative (Negative); OPIATES Negative (Negative); PCP Negative (Negative)
--- NOTE | 2019-04-20 07:21 | NUR ---
ASSUMED CARE OF PATIENT FROM ER. ADMISSION COMPLETE. CARDIZEM GTT INFUSING UNTIL 0600. CONVERTED TO SR. CALLS OUT APPROPRIATELY.
--- NOTE | 2019-04-20 08:40 | EKG ---
[address] [address] ELECTROCARDIOGRAM REPORT Name: FADI ELLIOTT Room #: 244-P ADM IN M.R.#: [id number] Admission: 04/19/19 Attend Phys: Angel Luis Oneil Discharge: Date of : 54 Report #: [id number] THIS REPORT FOR: //name// [facility] ED Test Date: 2019-04-19 Test Time: 20:03:51 Pat Name: FADI ELLIOTT Department: Room: 244 Gender: M Data Assistant: MIKI : 1950 Requested By: Dirk Patterson Order Number: [id number] MD: Alan Soliz Measurements Intervals [place] Rate: 138 P: 265 MT: 92 QRS: -81 QRSD: 182 T: 21 QT: 338 QTc: 512 Interpretive Statements Atrial flutter. RBBB and LAFB Compared to ECG 11/13/2011 07:43:16 Electronically Signed On 04-20-2019 8:40:12 EQUAL OPPORTUNITY DIRECTOR by Alan Soliz [email or web address] <ELECTRONICALLY SIGNED> By: Alan Soliz MD 04/20/19 0840 02 02 Alan Sloiz MD /RAFAEL
--- NOTE | 2019-04-20 08:43 | EKG ---
[address] [address] ELECTROCARDIOGRAM REPORT Name: ELLIOTTFADI Room #: 244-P ADM IN M.R.#: [id number] Admission: 04/19/19 Attend Phys: Angel Luis Oneil Discharge: Date of : 54 Report #: [id number] THIS REPORT FOR: //name// [facility] Test Date: 2019-04-20 Test Time: 08:17:25 Pat Name: FADI ELLIOTT Department: Room: 244 P Gender: M Corporate Security Officer: Kourtney ARANDA : 1950 Requested By: Libia Mojica Order Number: [id number] MD: Alan Soliz Measurements Intervals [place] Rate: 77 P: 33 [place]: 170 QRS: -57 QRSD: 162 T: 16 QT: 432 QTc: 489 Interpretive Statements Sinus rhythm RBBB and LAFB Compared to ECG 11/13/2011 07:43:16 Electronically Signed On 04-20-2019 8:43:13 RANGE EXAMINER by Alan Soliz [email or web address] <ELECTRONICALLY SIGNED> By: Alan Soliz MD 04/20/19 0843 6 6 Alan Soliz MD /RAFAEL
--- NOTE | 2019-04-20 09:52 | 2DMMODE ---
[facility] [address] [place] [address] 2 D/M-MODE ECHOCARDIOGRAM Name: EARLFADI ECKERT Room #: 244-P ADM IN M.R.#: [id number] Admission: 04/19/19 Attend Phys: Seferino Tirado Discharge: Date of : 54 Report #: [id number] THIS REPORT FOR: //name// APPROVED REPORT Study performed: 04/20/2019 08:39:09 EXAM: Comprehensive 2D, Doppler, and color-flow Echocardiogram Patient Location: ICU Room #: 244 Status: routine BSA: 2.38 HR: 115 bpm BP: 148/95 mmHg Rhythm: Atrial Fibrillation Other Information Study Quality: Adequate Technically limited study due to lung artifact and obesity. Indications Atrial Fibrillation Tachycardia Hx: CAD, CHF, HTN, HLP, DM. 2D Dimensions RVDd: 38.19 mm IVSd: 10.54 (7-11mm) LVOT Diam: 22.70 (18-24mm) LVDd: 52.27 mm PWd: 10.33 (7-11mm) Ascending Ao: 42.20 (22-36mm) LVDs: 43.11 (25-40mm) Aortic Root: 43.19 mm Volumes Left Atrial Volume (Systole) Single Plane 4CH: 92.86 mL Single Plane 2CH: 93.97 mL LA ESV Index: 42.00 mL/m2 Aortic Valve AoV Peak Rodrigo.: 1.58 m/s AO Peak Gr.: 11.15 mmHg LVOT Max P.41 mmHg LVOT Max V: 1.16 m/s YUMIKO Vmax: 2.97 cm2 [facility] [address] [place] [address] 2 D/M-MODE ECHOCARDIOGRAM Name: EARLFADIJUDY ECKERT Room #: 244-P [facility] IN .R.#: [id number] Admission: 04/19/19 Attend Phys: Seferino Tirado Discharge: Date of : 54 Report #: [id number] Mitral Valve MV Decel. Time: 106.92 ms MV E Max Rodrigo.: 1.07 m/s Pulmonary Valve PV Peak Rodrigo.: 1.22 m/s PV Peak Gr.: 5.93 mmHg Tricuspid Valve TR Peak Rodrigo.: 2.80 m/s RAP Estimate: 10.00 mmHg TR Peak Gr.: 30.00 mmHg PA Pressure: 40.00 mmHg Left Ventricle The left ventricle is normal size. There is normal LV segmental wall motion. There is normal left ventricular wall thickness. The left ventricular systolic function is normal. The left ventricular ejection fraction is within the normal range. LVEF is 50-55%. This study is not technically sufficient to allow evaluation of the LV diastolic function due to atrial fibrillation. Right Ventricle The right ventricle is normal size. The right ventricular systolic function is low normal. Atria Left atrium is moderately dilated. Right atrium is mildly dilated. Aortic Valve The aortic valve is normal in structure, minimally calcified. No aortic regurgitation is present. There is no aortic valvular stenosis. Mitral Valve The mitral valve is normal in structure. Mild mitral regurgitation. Tricuspid Valve The tricuspid valve is normal in structure. Mild to moderate tricuspid regurgitation. Estimated PAP is 40mmHg. Pulmonic Valve The pulmonary valve is normal in structure. Trace pulmonic regurgitation. [employer] [facility] [address] [place] [address] 2 D/M-MODE ECHOCARDIOGRAM Name: FADI ELLIOTT Room #: 244-P ADM IN M.R.#: [id number] Admission: 04/19/19 Attend Phys: Seferino Tirado Discharge: Date of : 54 Report #: [id number] Aortic root is dilated at 4.3cm. Aortic arch is dilated at 4.2cm. IVC is dilated and collapses <50% with inspiration. Pericardium There is no pericardial effusion. <Conclusion> The left ventricular systolic function is normal. There is normal LV segmental wall motion. LVEF is 50-55%. Left atrium is moderately dilated. The aortic valve is normal in structure, minimally calcified. No aortic regurgitation or stenosis The mitral valve is normal in structure. Mild mitral regurgitation. Mild to moderate tricuspid regurgitation. Estimated pulmonary artery pressure of 40mmHg. Aortic arch is mildly dilated (4.2cm). There is no pericardial effusion. <ELECTRONICALLY SIGNED> By: Keyon Treadwell MD, [facility] 04/20/19950 0 0 Keyon Treadwell MD, FAC /INF
--- NOTE | 2019-04-20 13:30 | NUR ---
Chart reviewed and case discussed with the care team. Poultry Debeaker visited with the pt at bedside. He is a&ox4 and indep prior to admission. His pcp is Dr. Kelechi Conde. He drives and has supportive friend Corinna who is a retired RN. She is also his dpoa for health care if needed. His nephew is also a next of kin contact and he lives in [place]. Both are listed as spokespersons. He is awaiting a surgery consult and pipida scan tomorrow. Pt has health insurance in place. Cm role introduced. No dc planning needs identified at this time. Will remain available should needs arise.
[2019-04-20 14:49] LABS: URINE BILIRUBIN NEGATIVE (Negative); URINE BLOOD 1+ (Negative); URINE CLARITY CLEAR; URINE COLOR YELLOW; URINE GLUCOSE-RANDOM* 1+ (Negative); URINE KETONES NEGATIVE (Negative); URINE LEUKOCYTES-REFLEX NEGATIVE (Negative); URINE NITRITE-REFLEX NEGATIVE (Negative); URINE PROTEIN (DIPSTICK) NEGATIVE (Negative); URINE SPECIFIC GRAVITY 1.025 (1.005-1.035)
[2019-04-20 15:04] LABS: SQUAMOUS 0-3 Few /LPF (0-3); URINE RBC 0-2 Rare /HPF (0-2)
[2019-04-20 15:05] LABS: BACTERIA-REFLEX 1-9 Few /HPF (None Seen); CASTS None Seen /LPF (None Seen); CRYSTALS None Seen /LPF (None Seen); URINE WBC-REFLEX None Seen /HPF (0-5)
[2019-04-20 16:06] LABS: HAV IgM AB (ANTI-HAV IgM) Negative (Negative); HEPATITIS B SURFACE AG Negative (Negative); HEPATITIS C VIRUS AB <0.1 (0.0-0.9)
--- NOTE | 2019-04-20 22:00 | NUR ---
Pt called out complaining of being drenched in sweat. Diaphoretic. VSS. Up to chair. Linens changed. Gown changed. Pt states he doesn't feel chilled or hot. No complaints other than sweating profusely. Will continue to monitor.
[2019-04-21] VITALS (24 sets, daily range): BP systolic 89–147; BP diastolic 47–106
[2019-04-21 05:21] LABS: HEMATOCRIT 30.7 % (42.0-52.0); HEMOGLOBIN 10.1 gm/dL (14.0-18.0); MCH 30.9 pg (26.0-34.0); MCHC 32.8 g/dL (28.0-37.0); MCV 94.2 fL (80.0-100.0); RBC 3.25 mil/uL (4.50-6.00); RDW 14.8 % (10.5-14.5); WBC 5.1 thou/uL (4.0-11.0)
[2019-04-21 05:57] LABS: ALBUMIN 2.7 g/dL (3.4-5.0); CREATININE 0.8 mg/dL (0.7-1.3); POTASSIUM 3.6 mmol/L (3.5-5.1); TOTAL BILIRUBIN 0.6 mg/dL (<0.1-1.0); TOTAL PROTEIN 5.7 g/dL (6.4-8.2)
--- NOTE | 2019-04-21 06:40 | NUR ---
Dr. Treadwell on rounds. OK to give po meds with sip of water this am waiting for PIPIDA scan.
--- NOTE | 2019-04-21 09:22 | H ---
[facility] [place] [address] HISTORY AND PHYSICAL Name: FADI ELLIOTT Room #: 244-P ADM IN M.R.#: [id number] Admission: 04/19/19 Attend Phys: Angel Luis Oneil Discharge: Date of : 54 Report #: [id number] THIS REPORT FOR: //name// CC: Seferino Conde DATE OF SERVICE: 04/20/2019 CHIEF COMPLAINT: Fever and abdominal pain. HISTORY OF PRESENT ILLNESS: The patient is a 68-year-old gentleman who was readmitted to the Emergency Room with fever and abdominal pain. He was hospitalized last week due to gastrointestinal bleed with endoscopy revealing gastric ulcer and a colon polyp was biopsied. He followed up in the office yesterday, but was complaining of pain and was noted to be tachycardic with concern for atrial fibrillation. He was directed to the Emergency Room with concerns of gallstones. He was reported to have some night sweats and fever at home as well. He was found to have rapid atrial fibrillation in the ER and required IV Cardizem and admission to ICU overnight. He has also been found to have elevated LFTs. PAST MEDICAL HISTORY: Atrial fibrillation, hypertension, remote history of gastric bypass in 2014, depression and anxiety. PAST SURGICAL HISTORY: As above. FAMILY HISTORY: Noncontributory. SOCIAL HISTORY: He lives at home. Denies chronic alcohol or tobacco use. ALLERGIES: None. MEDICATIONS: His Coumadin had been discontinued due to recent GI bleed. He is also on Flomax, Lexapro, Depakote, Protonix, and Ativan. REVIEW OF SYSTEMS: He denies headache, chest pain, shortness of breath, abdominal pain, nausea, vomiting, diarrhea, constipation, dysuria, syncope. OBJECTIVE: VITAL SIGNS: Temperature 36.4, pulse 71, respirations 18, blood pressure 139/84, O2 sat 95% on room air. GENERAL: He is awake and alert, in no distress. LUNGS: Clear. HEART: Irregular. ABDOMEN: Soft, tender in the right upper quadrant. No rebound or guarding. EXTREMITIES: No edema. NEUROLOGIC: Motor strength 5/[address] [address] HISTORY AND PHYSICAL Name: FADI ELLIOTT BABAR Room #: 244-P [facility] IN .R.#: [id number] Admission: 04/19/19 Attend Phys: Angel Luis Oneil Discharge: Date of : 54 Report #: [id number] LABORATORY DATA: Pertinent findings include elevated AST and ALT. Albumin is 2.8. Ultrasound of the abdomen reveals hepatic steatosis. CT abdomen reveals hepatic steatosis. ASSESSMENT: 1. Abdominal pain. 2. Elevated transaminase. 3. Rapid atrial fibrillation. 4. Severe protein-calorie malnutrition. PLAN: He is in ICU for rate control related AFib, which may be exacerbated by underlying gallbladder disease. The GI and Surgery Services are evaluating this. No anticoagulation for now given recent GI bleed. <ELECTRONICALLY SIGNED> By: Daniel Yang MD 04/21/19 0922 1405 1421 Daniel Yang MD /nt
--- NOTE | 2019-04-21 10:04 | NUR ---
ASSUMED CARE @ 0700, PT ASSESSMENTS AND VSS COMPLETE PER ICU PROTOCOL. PT NPO BUT PER DR BACK, CARDIAC MEDICATIONS SHOULD BE GIVEN WITH SIPS. PT DOWN TO NUCLEAR MED FOR PEPIDA TEST, NO COMPLICATIONS NOTED DURING TRANSPORT, WILL CONTINUE TO MONITOR.
[2019-04-21 16:02] LABS: ABSOLUTE NEUTROPHILS 2.6 thou/uL (1.4-8.2); BASOPHILS 3.7 % (0.0-2.0); EOSINOPHILS 6.3 % (0.0-3.0); HEMATOCRIT 30.1 % (42.0-52.0); HEMOGLOBIN 9.9 gm/dL (14.0-18.0); LYMPHOCYTES 30.5 % (24.0-44.0); MCHC 32.8 g/dL (28.0-37.0); MCV 94.6 fL (80.0-100.0); MONOCYTES 9.9 % (1.0-8.0); PLATELET COUNT 336 thou/uL (150-400); POLYS 49.6 % (36.0-66.0); RBC 3.18 mil/uL (4.50-6.00); RDW 14.9 % (10.5-14.5); WBC 5.2 thou/uL (4.0-11.0)
[2019-04-22] VITALS (16 sets, daily range): BP systolic 84–155; BP diastolic 46–107
[2019-04-22 00:09] LABS: HIV ANTIBODY Non Reactive (Non Reactive)
[2019-04-22 04:42] LABS: ALBUMIN 2.8 g/dL (3.4-5.0); DIRECT BILIRUBIN 0.3 mg/dL (<0.1-0.3); TOTAL BILIRUBIN 0.5 mg/dL (<0.1-1.0); TOTAL PROTEIN 6.1 g/dL (6.4-8.2)
--- NOTE | 2019-04-22 07:23 | NUR ---
PT HAD AN EPISODE OF NAUSEA AND SEVER PAIN LAST NIGHT AFTER EATING A SMALL CUP OF PUDDING, MEDS WERE ADMINISTERED ACCORDINGLY AND PT WAS RESTFUL REST OF THE NIGHT. TB SKIN TEST ADMINISTERED ON THE RIGHT FOREARM, AT 2145 04/21/19 NEEDS TO BE READ AFTER 48HRS- 72 HRS. PT HAD AN EPISODE THIS AM OF BEING DIAPHORETIC AND SEVERE PAIN.NO CHANGES IN VITAL SIGNS DURING THE EPISODE. HAS BEEN NPO SINCE 0000.
--- NOTE | 2019-04-22 09:34 | EKG ---
[address] [place] [address] ELECTROCARDIOGRAM REPORT Name: EARLFADIJUDY ECKERT Room #: 244-P ADM IN M.R.#: [id number] Admission: 04/19/19 Attend Phys: Angel Luis Oneil Discharge: Date of : 54 Report #: [id number] THIS REPORT FOR: //name// [facility] Test Date: 2019-04-21 Test Time: 07:28:53 Pat Name: FADI ELLIOTT Department: Room: 244 P Gender: M Sap Developer: DALE : 1950 Requested By: Keyon Treadwell Order Number: [id number] MD: Keyon Treadwell Measurements Intervals [place] Rate: 99 P: VT: QRS: -65 QRSD: 110 T: 8 QT: 391 QTc: 502 Interpretive Statements Atrial flutter Incomplete RBBB and LAFB Baseline wander in lead(s) V2 Compared to ECG 04/20/2019 08:17:25 Atrial flutter is now present Electronically Signed On 04-22-2019 9:34:38 FLATWORK FINISHER by Keyon Treadwell [email or web address] <ELECTRONICALLY SIGNED> By: Keyon Treadwell MD, [facility] 04/22/19 0934 0728 0728 Keyon Treadwell MD, [facility] /EPI
--- NOTE | 2019-04-22 14:23 | NUR ---
PT HAVING JUANA TODAY AND IN OR NOW. POSSIBLE W/E DC AND PT IS INDEPENDENT WITH MOBILITY. NO PLANNED CASE MANAGEMENT NEEDS AT DC.
--- NOTE | 2019-04-22 16:11 | NUR ---
ASSUMED CARE @ 0700 04/22/19, PT ASSESSMENTS AND VSS COMPLETE PER ICU PROTOCOL. 0720- 24 HOUR URINE STARTED. 1320- PT OFF THE UNIT TO PRE-OP FOR SURGERY. TB SKIN TEST TO BE READ IN Bvents 04/23/192144 - 04/24/192144. .ORDERS IN FOR TRANSFER TO 3W FROM RECOVERY. PT PROGRESSING TO PLAN OF CARE- WILL CONT TO MONITOR.
--- NOTE | 2019-04-22 18:37 | HC ---
[facility] [place] [address] CONSULTATION Name: EARLFADI BABAR Room #: 356-P [facility] IN M.R.#: [id number] Admission: 04/19/19 Attend Phys: Angel Luis Oneil Discharge: Date of : 54 Report #: [id number] THIS REPORT FOR: //name// CC: Seferino Conde DATE OF SERVICE: 04/21/2019 INFECTIOUS DISEASE CONSULTATION REASON FOR CONSULTATION: I was asked to evaluate concerning night sweats, anemia and elevated sedimentation rate. HISTORY OF PRESENT ILLNESS: The patient is a 68-year-old with underlying history of atrial fibrillation, obesity, obstructive sleep apnea who was admitted 2 weeks ago with upper GI bleed, found to have gastric ulcers. He has had a previous gastric bypass. He had upper and lower endoscopy and colon polyposis, nonmalignant. Hemoglobin dropped to 11 and stabilized. No active bleeding was identified. Following discharge, he noticed the development of right upper quadrant postprandial pain associated with nausea. He has had night sweats, which are drenching. Denies any fever or chills. He was readmitted on 04/19/2019 with atrial fibrillation and rapid ventricular response. Further workup showed evidence of hepatic steatosis and cholelithiasis on ultrasound. CT scan showed the same without evidence of intraabdominal abscess or other lymphadenopathy. He had mild elevation in his hepatic enzymes. Since his admission, he continues to have episodes of night sweats. He has had persistent nausea and anorexia. Following liquid or solid intake, he develops nausea and right upper quadrant abdominal pain. He has had fleeting episodes of right shoulder and neck pain. He has malaise and myalgias. No headache, change in mental status, oral lesions, cough or sputum production. Has mild dyspnea on exertion. Palpitations have resolved. No diarrhea. No dysuria or frequency. Denies rash, arthritis. REVIEW OF SYSTEMS: Full 10-point review of systems was negative other than what has been described above. ALLERGIES: None known. MEDICATIONS: Included Lexapro, diltiazem, Cozaar, lovastatin, bupropion, pantoprazole, trazodone, Flomax, Tylenol, lorazepam, Protonix. He has not been on any recent antibiotics. PAST MEDICAL HISTORY: Cardiomyopathy, hypertension, atrial fibrillation, hyperlipidemia, congestive heart failure, obstructive sleep apnea, diabetes, gastric ulcers, colon polyposis, anxiety and depression, atrial ablation, gastric bypass surgery, tonsillectomy. [address] [address] CONSULTATION Name: FADI ELLIOTT BABAR Room #: 356-P [facility] IN .R.#: [id number] Admission: 04/19/19 Attend Phys: Angel Luis Oneil Discharge: Date of : 54 Report #: [id number] FAMILY HISTORY: Noncontributory. SOCIAL HISTORY: Nonsmoker, minimal alcohol intake. 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 His life partner several years ago. He lives alone. No travel outside the [place] recently. No tuberculosis exposure. Reports negative HIV, hepatitis. No STDs. PHYSICAL EXAMINATION: VITAL SIGNS: He is afebrile, hemodynamically stable. GENERAL: He is alert and cooperative and pleasant. Blood pressure has been in the 90s-100s systolic. He has been asymptomatic with this. SKIN: Without rash or decubitus. No palpable adenopathy. Moderately obese. HEENT: Eyes, without scleral icterus or petechiae. Mouth without mucositis or lesion. NECK: Supple. LUNGS: Clear to auscultation. HEART: Regular without appreciable murmur, gallop or rub. ABDOMEN: Mildly obese, soft, positive bowel sounds. Tender in the right upper quadrant, no appreciable mass or hepatosplenomegaly. GENITOURINARY: External genitalia without lesion or mass. RECTAL: Not performed. The patient has had this done recently. EXTREMITIES: Without clubbing, cyanosis or edema. BACK: Nontender. NECK: Full range of motion with no tenderness. No CVA tenderness. NEUROLOGIC: Cranial nerves intact. Strength in his upper and lower extremities is normal. Mood and affect were normal. LABORATORY STUDIES: Hemoglobin 9.9, WBC 5.2, platelet count 336,000. Differential unremarkable. Sodium 141, potassium 3.6, bicarbonate 28, creatinine 0.8. Liver function tests normal except for an ALT of 73, albumin at 2.7. Rheumatoid factor negative. Hepatitis viral screen negative. Urinalysis unremarkable. Echocardiogram, no valvular vegetations. Drug screen negative. Ultrasound CT is noted. Chest x-ray, no acute pulmonary infiltrate. Sedimentation rate 58 to greater than 140. CRP 85. TSH 2.2. Hepatobiliary scan, ejection fraction 22%. Blood cultures are negative to date. IMPRESSION: A 68-year-old with a 2-week history of progressive symptoms initially, noted to have gastrointestinal bleed, felt related to gastric ulcers in a patient who is anticoagulated for atrial fibrillation. Following this evaluation, he developed night sweats, postprandial nausea and vomiting along with right upper quadrant pain that seems most consistent with biliary tract disease and cholecystitis. Issue, however, is that the patient has had no fever or evidence of leukocytosis. His imaging studies failed to identify any stone obstruction or gallbladder wall thickening. Whether this is acute cholecystitis or biliary dyskinesia is not yet clear. No other source of infection is yet identified. Does not appear to have malignancy or evidence of vasculitis. CT [facility] [place] [address] CONSULTATION Name: FADI ELLIOTT Room #: 356-P ADM IN M.R.#: [id number] Admission: 04/19/19 Attend Phys: Angel Luis Oneil Discharge: Date of : 54 Report #: [id number] scan did not show any evidence of complications from his gastric bypass. 1. Cardiomyopathy, atrial fibrillation, hypertension. 2. Obesity and obstructive sleep apnea. 3. Anxiety and depression. RECOMMENDATIONS: Agree with surgical evaluation for consideration of cholecystectomy. We will screen for HIV, TB, fungal disease, although I suspect this is going to be low yield. We will hold antibiotics for now and we will await findings at laparoscopy. <ELECTRONICALLY SIGNED> By: Dirk Conde MD 04/22/19 1837 19 2345 Dirk Conde MD /nt
--- NOTE | 2019-04-23 03:04 | NUR ---
Patient making slow progress towards outcome goals. Vital signs and rhythm stable. Good pain and anxiety control with Fentanyl and Lorazepam. 24 urine collection in progress. NPO after MN for MRCP. IVfluids infusing. Calls out appropriately for needs. Gait steady when out of bed.
[2019-04-23 03:36] VITALS: BP 121/65
[2019-04-23 06:10] LABS: HEMATOCRIT 27.6 % (42.0-52.0); HEMOGLOBIN 8.7 gm/dL (14.0-18.0); MCHC 31.5 g/dL (28.0-37.0); MCV 95.3 fL (80.0-100.0); RBC 2.89 mil/uL (4.50-6.00); RDW 14.5 % (10.5-14.5); WBC 15.2 thou/uL (4.0-11.0)
[2019-04-23 06:35] LABS: ALBUMIN 2.7 g/dL (3.4-5.0); CALCIUM 8.1 mg/dL (8.5-10.1); CREATININE 0.9 mg/dL (0.7-1.3); POTASSIUM 3.9 mmol/L (3.5-5.1); TOTAL PROTEIN 5.9 g/dL (6.4-8.2)
[2019-04-23 08:00] VITALS: BP 111/66
[2019-04-23 09:08] LABS: FREE TESTOSTERONE 6.3 pg/mL (6.6-18.1)
[2019-04-23 11:40] VITALS: BP 98/63
[2019-04-23 15:58] VITALS: BP 95/45
--- NOTE | 2019-04-23 16:55 | NUR ---
Assumed care approx. 0700 this AM. MRI MRCP completed today. Patient started on clear liquid diet and has been tolerating well with no complaints of nausea. 24 hour urine finished this AM and taken to lab for completion. Fentanyl order changed from Q4H to Q2H PRN. Maintenance fluids infusing per orders. DPOA at bedside to visit this afternoon. Pt slowly progressing toward plan of care goals.
[2019-04-23 19:10] VITALS: BP 91/56
[2019-04-23 23:54] VITALS: BP 91/69
--- NOTE | 2019-04-24 03:27 | NUR ---
Patient maiking slow progress towards outcome goals. Vital signs and rhythm stable. Good pain control with Fentanyl. IVFluids infusing. Up adlib. Gait steady. Tolerating clear liquids. Hypoactive bowel sounds. Not passing flatus, No BM.
[2019-04-24 03:30] VITALS: BP 107/64
--- NOTE | 2019-04-24 05:15 | NUR ---
Urge to void , took a while to pass urine, zakia colored 300 ml. Post void residual 0. Flomax restaterd yesterday.
[2019-04-24 05:21] LABS: HEMATOCRIT 25.3 % (42.0-52.0); HEMOGLOBIN 8.3 gm/dL (14.0-18.0); MCH 31.3 pg (26.0-34.0); MCHC 32.7 g/dL (28.0-37.0); MCV 95.9 fL (80.0-100.0); RBC 2.64 mil/uL (4.50-6.00); RDW 14.7 % (10.5-14.5); WBC 10.6 thou/uL (4.0-11.0)
[2019-04-24 05:44] LABS: CALCIUM 8.3 mg/dL (8.5-10.1); POTASSIUM 3.8 mmol/L (3.5-5.1)
[2019-04-24 05:49] LABS: ALBUMIN 2.6 g/dL (3.4-5.0); DIRECT BILIRUBIN 0.5 mg/dL (<0.1-0.3); TOTAL PROTEIN 5.3 g/dL (6.4-8.2)
[2019-04-24 11:19] VITALS: BP 105/68
[2019-04-24 15:49] VITALS: BP 116/61
--- NOTE | 2019-04-24 16:52 | NUR ---
ASSUMED CARE OF PT AT 0700. PT AOX4 IN NO ACUTE DISTRESS. REPORTS PAIN W/ ACTIVITY - GOOD RELIEF W/ CURRENT MED REGIMEN. UP AD JACE IN ROOM. SOFT BP - LOSARTAN HELD. SINUS ON TELEMETRY. ADVANCING DIET - MANDEEP WELL. HYPOACTIVE BOWEL SOUNDS - DENIES PASSING GAS. SLOW PROGRESS TOWARD POC GOALS. WILL CONT TO MONITOR.
[2019-04-24 19:35] VITALS: BP 97/57
[2019-04-24 23:59] VITALS: BP 117/73
--- NOTE | 2019-04-25 03:20 | NUR ---
Patient making slow progress towards outcome goals. Vital signs and rhythm stable. Urine output slowly improving with IVfluids. Surgical sites dry and intact. Good pain control with Fentayl. Appetite improving, was able to eat turkey sandwich at bedtime. Gait steady up adlib in room.
[2019-04-25 04:23] VITALS: BP 113/60
[2019-04-25 07:12] VITALS: BP 153/116
[2019-04-25 07:42] VITALS: BP 124/64
[2019-04-25 11:20] VITALS: BP 116/70
[2019-04-25 13:07] LABS: ANA INTERPRETATION Negative (Negative)
[2019-04-25 16:12] VITALS: BP 115/59
--- NOTE | 2019-04-25 18:15 | NUR ---
ASSUMED PATIENT CARE AT 0700. TITRATED 02 TO 1L. AMBULATED IN ROOM. PROGRESSING TOWARDS POC GOALS.
[2019-04-25 20:06] VITALS: BP 132/76
[2019-04-26 04:04] VITALS: BP 138/79
--- NOTE | 2019-04-26 06:22 | NUR ---
Pt. anxious at beginning of shift stating when he tried to lie down he was short of breath. O2 at 1L/NC with O2 sat in the low 90's ( 93%-94% ). He gets up on his own with steady gait and gets short of breath with exertion. He slept in recliner chair and stated he slept intermittently. Pain med given with good relief. Voided per urinal and only voided x2 ( 300 ml ). Bladder scanned and reads 165. Lap sites healing well. Making progress towards care plan goals.
[2019-04-26 07:37] LABS: HEMOGLOBIN 8.5 gm/dL (14.0-18.0); MCH 30.9 pg (26.0-34.0); MCHC 32.5 g/dL (28.0-37.0); MCV 95.1 fL (80.0-100.0); RBC 2.73 mil/uL (4.50-6.00); RDW 14.8 % (10.5-14.5); WBC 7.5 thou/uL (4.0-11.0)
[2019-04-26 08:07] VITALS: BP 135/74
[2019-04-26 09:56] LABS: ALBUMIN 2.7 g/dL (3.4-5.0); CALCIUM 8.4 mg/dL (8.5-10.1); CREATININE 0.8 mg/dL (0.7-1.3); POTASSIUM 3.8 mmol/L (3.5-5.1); TOTAL BILIRUBIN 0.3 mg/dL (<0.1-1.0); TOTAL PROTEIN 5.5 g/dL (6.4-8.2)
[2019-04-26 11:37] VITALS: BP 128/68
--- NOTE | 2019-04-26 16:06 | PATH ---
[facility] [address] [place] [address] PATHOLOGY RPT PROCEDURE Name: BOB ELLIOTT Room #: 356-P [facility] IN M.R.#: [id number] Admission: 04/19/19 Date of : 54 Discharge: Report #: [id number] Path Case #: [id number] LCA Accession Number: [id number] . 01 Material submitted: . gallbladder - GALLBLADDER . 01 Clinical history: . Cholecystitis with cholelithiasis . 02 Diagnosis: Gallbladder, cholecystectomy: - Moderate chronic cholecystitis. - Cholelithiasis. . (IUV:mml; 04/26/2019) [facility] 04/26/2019 1258 Local . 02 Electronically signed: . Marjorie Land MD, Pathologist NPI- [id number] . 01 Gross description: . The specimen is received in formalin, labeled "Bob Elliott, gallbladder". Received is a previously opened gallbladder measuring 9.0 x 3.8 x 1.8 cm in greatest dimensions displaying a adipose covered serosal surface. Opening the specimen reveals a velvety, light langston mucosa with a gallbladder wall thickness of 0.1 cm. Calculi are present displaying a black, stellate to light brown, smooth appearance, and no masses or lesions are noted grossly. Urban Anthropologist sections, to include the proximal margin, are submitted in cassette A1. (CAA; 04/25/2019) QA/[facility] 04/25/2019 1442 Local . 02 Pathologist provided ICD-10: K80.10 . 02 CPT . 091278 Specimen Comment: A courtesy copy of this report has been sent to [phone] Specimen Comment: [id number] Specimen Comment: Report sent to and Performed at: [address] [id number] MD Butch Morales MD Phone: [phone] [place] [address] [place] [address] PATHOLOGY RPT PROCEDURE Name: ELLIOTTBOB Room #: 356-P [facility] IN M.R.#: [id number] Admission: 04/19/19 Date of : 54 Discharge: Report #: [id number] Path Case #: [id number] Performed at: 02 [address] [place], [place] [id number] MD Marjorie Land MD Phone: [phone]
[2019-04-26 16:13] VITALS: BP 118/70
[2019-04-26 20:30] VITALS: BP 122/74
[2019-04-27 04:00] VITALS: BP 119/66
[2019-04-27 04:47] LABS: HEMATOCRIT 26.7 % (42.0-52.0); HEMOGLOBIN 8.4 gm/dL (14.0-18.0); MCH 29.7 pg (26.0-34.0); MCHC 31.6 g/dL (28.0-37.0); RBC 2.84 mil/uL (4.50-6.00); RDW 14.9 % (10.5-14.5)
[2019-04-27 05:19] LABS: ALBUMIN 2.7 g/dL (3.4-5.0); CALCIUM 8.1 mg/dL (8.5-10.1); CREATININE 0.9 mg/dL (0.7-1.3); TOTAL BILIRUBIN 0.5 mg/dL (<0.1-1.0); TOTAL PROTEIN 5.6 g/dL (6.4-8.2)
--- NOTE | 2019-04-27 05:47 | NUR ---
PATIENT IS ALERT AND ORIENTED. PATIENT IS UP AD JACE. PATIENT IS POST OP DAY 5 FROM [facility]. PATIENT IS 1LNC TO ROOM AIR. ROOM AIR IS BASELINE. PATIENT IS PENDING DISCHARGE TODAY. PATIET IS NSR ON B BBB ON TELE. PATIENTS PAIN IS CONTROLLED WITH PAIN MEDICATION. PATIENT IS RESTING COMFORTABLY IN BED. M.
[2019-04-27 07:45] VITALS: BP 131/66
--- NOTE | 2019-04-27 08:58 | NUR ---
Assess for length of stay. S/P lap chol on 04/22. Diet advanced slowly but poor intake past several days. KUB negative for GI concerns. Has miralax ordered. Na/Cl elevated, needs to start drinking more water and hopeful improvement in po intake. Usually eats well. Physician has indicated protein calorie malnutrition: RD will defer. BMI 36.2. Low nutrition risk with possible discharge soon.
[2019-04-27 11:49] VITALS: BP 118/66
[2019-04-27 16:36] VITALS: BP 128/69
--- NOTE | 2019-04-27 16:38 | NUR ---
SW reviewed chart and spoke with nursing. Pt was transferred to 3 from ICU and is slowly progressing towards goals for discharge. Pt to have CT today due to shortness of breath. Plan is for pt to return home when medically stable. GWEN is following to assist as needed with discharge planning.
[2019-04-27 17:08] LABS: INR 1.1; PROTIME 10.9 Seconds (9.3-11.4)
--- NOTE | 2019-04-27 18:45 | NUR ---
ASSUMED CARE OF PT AT 0700. MORE DYSPNEA TODAY. CT CHEST SHOWING BILAT PE. HEPARIN GTT INITIATED BY PULM, WITH BOLUS. HOLD PT. PT IN BED OR CHAIR ONLY. WILL CONT TO MONITOR.
[2019-04-27 21:45] VITALS: BP 155/86
[2019-04-28 00:28] LABS: HEMATOCRIT 26.1 % (42.0-52.0); HEMOGLOBIN 8.3 gm/dL (14.0-18.0); MCH 29.7 pg (26.0-34.0); MCHC 31.8 g/dL (28.0-37.0); MCV 93.6 fL (80.0-100.0); RBC 2.79 mil/uL (4.50-6.00); RDW 14.9 % (10.5-14.5); WBC 7.1 thou/uL (4.0-11.0)
--- NOTE | 2019-04-28 03:35 | NUR ---
PT IS REFUSING TB SPOT TEST. PT STATES HE ALREADY HAS HAD A TB TEST DONE AND DOES NOT WANT TO PAY FOR IT AGAIN. TB SKIN TEST WAS DONE ONE THE Apr AND READ ON THE Apr. LAB IS AWARE AND WILL NOT DRAW THE TB SPOT TEST.
[2019-04-28 04:11] VITALS: BP 130/72
[2019-04-28 06:25] LABS: HEMATOCRIT 27.4 % (42.0-52.0); HEMOGLOBIN 8.8 gm/dL (14.0-18.0); MCH 29.9 pg (26.0-34.0); MCHC 32.1 g/dL (28.0-37.0); MCV 93.2 fL (80.0-100.0); RBC 2.94 mil/uL (4.50-6.00); WBC 7.3 thou/uL (4.0-11.0)
--- NOTE | 2019-04-28 06:42 | NUR ---
PT IS A/0X4. PAIN MANAGEMENT WAS A PRIORITY. RECEIVED ORDERS TO MOVE PT TO NPO FOR POSSIBLE CAPSULE STUDY. PT SLEPT IN CHAIR ALL EVENING. Q6 APTT LABS UNTIL PT REACHES THERAPEUTIC LEVEL. VSS, TELE SHOWS SR, WITH SOME AFIB MIXED AT DIFFERENT TIMES. HOURLY ROUNDING.
[2019-04-28 08:08] VITALS: BP 136/72
[2019-04-28 11:34] VITALS: BP 123/74
--- NOTE | 2019-04-28 14:56 | NUR ---
SW reviewed chart and spoke with nursing. Pt to have capsule study today per GI. Pt is not ready for discharge. SW is following to assist as needed with discharge planning.
--- NOTE | 2019-04-28 16:29 | NUR ---
ASSUMED CARE OF PT AT 0700. PT SHOWING IMPROVEMENT. LESS PALE. LESS DYSPNEA ON SUPPLEMENTAL OXYGEN. HEPARIN GTT INFUSING - PTT THERAPEUTIC. UP AD JACE W/ BATHROOM PRIVELEDGES PER PULM. CURRENTLY HAVING CAPSULE M2 STUDY. ON CLEAR LIQUIDS UNTIL 1720. VSS. WILL CONT TO MONITOR.
[2019-04-28 17:02] VITALS: BP 114/54
[2019-04-28 20:10] VITALS: BP 134/71
--- NOTE | 2019-04-29 04:07 | NUR ---
PT MAKING SLOW PROGRESS TOWARDS GOALS. PT REPORTING INTERMITTENT UPPER QUADRANT ABDOMINAL PAIN. "SOMETIMES THE PAIN IS ACTUALLY GONE." GIVEN FENTANYL X2. SEE CHARTING.
[2019-04-29 05:00] VITALS: BP 115/66
[2019-04-29 06:09] LABS: HEMATOCRIT 27.1 % (42.0-52.0); HEMOGLOBIN 8.5 gm/dL (14.0-18.0); MCH 29.3 pg (26.0-34.0); MCHC 31.3 g/dL (28.0-37.0); MCV 93.5 fL (80.0-100.0); RBC 2.9 mil/uL (4.50-6.00); RDW 15.2 % (10.5-14.5); WBC 7.8 thou/uL (4.0-11.0)
[2019-04-29 06:17] LABS: CALCIUM 8.2 mg/dL (8.5-10.1); CREATININE 0.8 mg/dL (0.7-1.3); POTASSIUM 3.5 mmol/L (3.5-5.1)
[2019-04-29 07:30] VITALS: BP 123/65
[2019-04-29 11:18] VITALS: BP 120/69
--- NOTE | 2019-04-29 15:42 | NUR ---
SW reviewed chart and spoke with nursing. Pt is not ready for discharge home yet. Awaiting results of capsule study. Plan is for pt to discharge home when medically stable. GWEN is following to assist as needed.
--- NOTE | 2019-04-29 19:54 | NUR ---
RECEIVED PT'S CARE AROUND 0740; PT. AOX4; RESTING WITH EYES CLOSED ON CHAIR; DURING ASSESSMENT C/O NAUSEA; PRN MEDICATION GIVEN WITH AM MEDICATIONS; HEPARING GTT RUNNING; EDUCATED ABOUT KEEPING NC ON PLACE; 02 3L; C/O ABDOMINAL PAIN; REFUSED IV PRN MEDICATION; EDUCATED ABOUT PAIN MANAGEMENT; ST. UNDERSTANDING; PRN PO PAIN MEDICATION GIVEN; DURING THE AFTERNOON PT'S HEART MONITOR SHOWED SB; NO C/O HEADACHE OR SOB; CARDIOLOGY NOTIFIED; NO NEW ORDERS; MONITORING; ASSESSMENT CHARGED; FOLLOWING POC; PASSED ON REPORT;
[2019-04-29 20:06] LABS: URINE DOPAMINE 77 ug/L (Undefined); URINE EPINEPHRINE 5 ug/L (Undefined); URINE NOREPINEPHRINE 37 ug/L (Undefined)
[2019-04-29 20:30] VITALS: BP 104/53
--- NOTE | 2019-04-30 04:55 | NUR ---
PT SLEPT IN RECLINER CHAIR THROUGHOUT SHIFT W/O C/O COMPLAINTS. PT REMAINS ON 3L O2 PER NC. PT SB MOSTLY ON MONITOR INTO 50S. HEPARIN GTT GOING WITH NO CHANGES, PENDING PTT THIS AM PER PROTOCOL. PT REQUIRED A DOSE OF ZOFRAN D/T NEED POST EATING.
[2019-04-30 06:14] LABS: HEMATOCRIT 27.7 % (42.0-52.0); HEMOGLOBIN 8.7 gm/dL (14.0-18.0); MCH 29.5 pg (26.0-34.0); MCHC 31.5 g/dL (28.0-37.0); MCV 93.7 fL (80.0-100.0); RBC 2.96 mil/uL (4.50-6.00); RDW 15.8 % (10.5-14.5); WBC 8.4 thou/uL (4.0-11.0)
[2019-04-30 06:21] LABS: CALCIUM 8.2 mg/dL (8.5-10.1); POTASSIUM 3.5 mmol/L (3.5-5.1)
[2019-04-30 07:47] VITALS: BP 117/63
--- NOTE | 2019-04-30 10:26 | NUR ---
Pt was alert, oriented x4. No c/o pain. Pt has been sitting on recliner. Pt was very attentive to the medication what pt has taken. Edema, traceable on L hand and +1 on LE, ag. Heparin gtt was running @17.9 unit via L FA. IVs are intact and wrapped up w/ coban tape. BP was 117/63 this morning but HR was very bharati. Atemolol 50mg was held this monring. Pt refused taking Miralax, saying that he had big BM.
[2019-04-30 15:29] VITALS: BP 83/45
[2019-04-30 16:05] VITALS: BP 106/51
[2019-04-30 19:28] VITALS: BP 150/69
--- NOTE | 2019-05-01 00:13 | NUR ---
PT SITTING UP IN CHAIR IN THE DARK, IV HEPARIN CONTINUES. PT HAD HS SNACK, REPORTS EATING SMALL FREQUENT SNACKS THROUGHOUT THE NIGHT, ABD DISTENDED, NO C/O LOOSE STOOL. BLE EDEMA +2 REMAINS, LH TRACE EDEMA. O2 PER NC 3L.
[2019-05-01 03:05] VITALS: BP 131/100
[2019-05-01 06:06] LABS: HEMATOCRIT 27.3 % (42.0-52.0); HEMOGLOBIN 8.6 gm/dL (14.0-18.0); MCH 29.5 pg (26.0-34.0); MCHC 31.3 g/dL (28.0-37.0); MCV 94.2 fL (80.0-100.0); RBC 2.9 mil/uL (4.50-6.00); RDW 16.3 % (10.5-14.5); WBC 8.9 thou/uL (4.0-11.0)
[2019-05-01 07:49] VITALS: BP 122/64
[2019-05-01 11:12] VITALS: BP 105/62
[2019-05-01 15:27] VITALS: BP 109/61
--- NOTE | 2019-05-01 16:33 | NUR ---
PATIENT ALERT AND ORIENTED X4, NO COMPLAINTS OF PAIN. ON 3L NASAL CANNULA, PATIENT WALKED HALLWAY WITH STANDBY ASSISTANCE. PATIENT WALKED 3 FEET AND SHORTNESS OF BREATH AND LOOKED PALE, PLACED IN CHAIR AND REGAINED COLOR. PATIENT ALSO VERBALIZED FEELING DEPRESSED AND WANTING A CHANGE OF SCENERY DUE TO WINDOW IN 359 FACING A BRICK WALL. PATIENT TRANSFERRED TO 360. NO SIGN OF ACUTE DISTRESS NOTED AT THIS TIME. WILL CONTINUE TO MONITOR.
[2019-05-01 19:00] VITALS: BP 106/59
[2019-05-02 03:37] VITALS: BP 118/61
--- NOTE | 2019-05-02 03:58 | NUR ---
resting quietly tonight. denies complaints of abdominal pain. denies red urine. conitnues on iv heparin. careplan reviewed. expecting to go home soon.
[2019-05-02 06:14] LABS: ABSOLUTE NEUTROPHILS 4.5 thou/uL (1.4-8.2); BASOPHILS 0.5 % (0.0-2.0); EOSINOPHILS 5.1 % (0.0-3.0); HEMATOCRIT 27.7 % (42.0-52.0); HEMOGLOBIN 8.7 gm/dL (14.0-18.0); LYMPHOCYTES 28.6 % (24.0-44.0); MCH 29.7 pg (26.0-34.0); MCHC 31.3 g/dL (28.0-37.0); MCV 94.9 fL (80.0-100.0); MONOCYTES 11.3 % (1.0-8.0); PLATELET COUNT 410 thou/uL (150-400); POLYS 54.5 % (36.0-66.0); RBC 2.92 mil/uL (4.50-6.00); RDW 16.8 % (10.5-14.5); WBC 8.2 thou/uL (4.0-11.0)
[2019-05-02 06:20] LABS: APTT 68.7 Seconds (24.5-32.8); INR 1.1; PROTIME 11.4 Seconds (9.3-11.4)
[2019-05-02 06:22] LABS: CALCIUM 8.5 mg/dL (8.5-10.1); POTASSIUM 3.6 mmol/L (3.5-5.1)
[2019-05-02 07:29] VITALS: BP 125/71
[2019-05-02 11:50] VITALS: BP 111/71
--- NOTE | 2019-05-02 14:25 | NUR ---
SW reviewed chart and spoke with nursing. Pt is progressing towards goals for discharge. Pt started on coumadin. Hgb has been stable. Plan is for pt to discharge home when medically stable. SW is following to assist as needed with discharge planning.
[2019-05-02 16:13] VITALS: BP 106/61
--- NOTE | 2019-05-02 18:26 | NUR ---
ASSUMED CARE OF PT AT 0700. PT AOX4. STILL C/O SOA WITH EXERTION. AMBULATING AROUND HALLWAY REQUIRING BREAKS. HEPARIN GTT INFUSING - APTT THERAPEUTIC. CURRENTLY BRIDGING COUMADIN. ONE TIME LASIX DOSE GIVEN. GOOD OUTPUT. IRON INFUSION GIVEN. VITALS STABLE. PT PROGRESSING TOWARD POC GOALS.
[2019-05-02 19:54] VITALS: BP 104/66
[2019-05-02 20:00] VITALS: BP 104/66
[2019-05-03 04:59] VITALS: BP 104/64
--- NOTE | 2019-05-03 05:51 | NUR ---
ASSUMED CARE OF PT AT 1900. A&Ox4, COOPERATIVE. VS STABLE. SOA W/ EXERTION. WALKED 50 ft IN HALLWAY. SOA BUT NORIS TO RETURN TO ROOM W/OUT NEEDING TO SIT DOWN. CONTINUES 2L O2 NC. ALL LUNG FEILDS CLEAR. HEPARIN DRIP INFUSING. WAITING FOR LABS TO DETERMINE THERAPEUTIC VALUES OR NEED FOR TITRATION. COUMADIN GIVEN ORDERED. AWAKE FOR MOST OF THIS SHIFT. CURRENTLY RESTING IN HIS CHAIR. PROGRESSING TOWARDS POC GOALS.
[2019-05-03 06:25] LABS: HEMATOCRIT 28.3 % (42.0-52.0); HEMOGLOBIN 8.9 gm/dL (14.0-18.0)
[2019-05-03 06:37] LABS: INR 1.1; PROTIME 11.6 Seconds (9.3-11.4)
[2019-05-03 07:26] VITALS: BP 118/78
[2019-05-03 08:07] LABS: CALCIUM 8.9 mg/dL (8.5-10.1); POTASSIUM 3.7 mmol/L (3.5-5.1)
[2019-05-03 11:17] VITALS: BP 108/65
--- NOTE | 2019-05-03 14:40 | NUR ---
DISCHARGE PLANNING. ANTICIPATED DISCHARGE PLANNED FOR LATER IN THE WEEK OR POSSIBLY WEEKEND DISCHARGE. DISCHARGE PLAN IS TO HOME WITH HOME HEALTH SERVICES. PATIENT REFERRAL FAXED TO [facility] PER REQUEST. CALL PLACED TO [facility] TO NOTIFY, SPOKE WITH SALLY. SALLY TO REVIEW REFERRAL AND NOTIFY. FOLLOWING.
[2019-05-03 15:16] VITALS: BP 99/61
--- NOTE | 2019-05-03 15:40 | NUR ---
SW reviewed chart and spoke with nursing. Pt is progressing towards goals for discharge. Pt is on heparin gtt. Coumadin was started yesterday. Pt remains on continuous O2. GWEN met with pt at bedside to discuss discharge plan. Pt states he will need HH services at time of discharge for nursing/therapy needs when he returns home. Pt will need lab work to be done regularly. HH providers discussed with pt. No preference voiced. SW confirmed pt's home address and phone number. Pt's PCP is Dr. Kelechi Conde. space planner to fax referral to [facility] . Pt will need rest/exercise oximetry prior to discharge to determine if pt will need home O2. GWEN is following to assist as needed with discharge planning.
--- NOTE | 2019-05-03 19:27 | NUR ---
NO CHANGE, HEPRAIN GTT ON. NO BLEEDING. PROGRESSING TOWARDS POC GOALS.
[2019-05-03 19:41] VITALS: BP 103/57
--- NOTE | 2019-05-04 02:40 | NUR ---
ASSUMED CARE OF PT AT 1900. A&Ox4, COOPERATIVE. VS STABLE. SR/SB ON TELE. HEPARIN DRIP CONTINUED OVER NOC. SOA AT TIMES WHEN HE TAKES 2L O2 OFF. HE REPLACES IT NEEDED AND KEEPS IT ON WHILE SLEEPING. NO ACUTE CHANGES THIS SHIFT. STATED HE IS LOOKING FORWARD TO GOING HOME SOON. PROGRESSING WELL TOWARDS POC GOALS.
[2019-05-04 04:13] VITALS: BP 118/79
[2019-05-04 06:35] LABS: HEMATOCRIT 29.7 % (42.0-52.0); HEMOGLOBIN 9.4 gm/dL (14.0-18.0)
[2019-05-04 06:47] LABS: CALCIUM 8.3 mg/dL (8.5-10.1); CREATININE 0.9 mg/dL (0.7-1.3); POTASSIUM 4.1 mmol/L (3.5-5.1)
[2019-05-04 06:50] LABS: APTT 73.7 Seconds (24.5-32.8); INR 1.4; PROTIME 14.2 Seconds (9.3-11.4)
[2019-05-04 07:19] VITALS: BP 114/63
[2019-05-04 11:35] VITALS: BP 130/66
--- NOTE | 2019-05-04 11:35 | NUR ---
Followup: significant improvement in pts appetite now eating up to 80% of meals. Ordering own foods. Started on warfarin which pt states has been on in past and familiar with vitamin K/drug interaction. Low nutrition risk
--- NOTE | 2019-05-04 13:52 | NUR ---
SW reviewed chart and spoke with nursing. Pt is progressing towards goals for discharge. Discharge home with is anticipated for tomorrow. [facility] able to accept pt on service. Rest/exercise oximetry ordered to evaluate pt for possible home O2. GWEN is following to assist as needed with discharge planning.
[2019-05-04 15:44] VITALS: BP 109/56
--- NOTE | 2019-05-04 17:44 | NUR ---
PROGRESSING TOWARDS POC GOALS. AMBULATED IN [address]. NO BLEEDING.
[2019-05-04 19:55] VITALS: BP 113/69
[2019-05-05 04:01] VITALS: BP 113/69
[2019-05-05 04:25] VITALS: BP 111/61
[2019-05-05 06:04] LABS: HEMATOCRIT 29.3 % (42.0-52.0); HEMOGLOBIN 9.1 gm/dL (14.0-18.0)
[2019-05-05 06:21] LABS: INR 1.7; PROTIME 17.1 Seconds (9.3-11.4)
--- NOTE | 2019-05-05 06:29 | NUR ---
PT PROGRESSING TOWARDS DC GOALS. PT ABLE TO AMBULATE THE WHOLE THIRD FLOOR WITH OUT ANY ISSUES. SW/CM STATES PT SHOULD DC TODAY. HEPARIN DRIP INFUSING AT THERAPEUTIC RATE. PT BRIDGING WITH COUMADIN AND HEPARIN DRIP FOR BILATERAL PE'S. REQUEST FOR TYLENOL X1 OVERNIGHT. NO OTHER ISSUES OR COMPLAINT'S. HOURLY ROUNDING.
[2019-05-05 07:23] VITALS: BP 126/76
[2019-05-05 11:35] VITALS: BP 129/78
--- NOTE | 2019-05-05 14:46 | NUR ---
SW reviewed chart and spoke with nursing and attending physician. Pt's INR is 1.7 today. Anticipate pt will be ready to discharge home soon. SW met with pt at bedside to discuss discharge plan. Pt is currently on room air. SW informed pt of [facility] acceptance. Plan is for pt to d/c home with HH when medically stable. GWEN is following to assist as needed with discharge planning.
[2019-05-05 15:23] VITALS: BP 109/86
--- NOTE | 2019-05-05 18:01 | NUR ---
ASSUMED CARE OF PT AT 0700. PT ALERT AND ORIENTED, IN NO ACUTE DISTRESS. VOICING NO COMPLAINTS. UP AD JACE ON ROOM AIR. HEPARIN GTT INFUSING. WAITING FOR INR > 2.0 FOR D/C.
[2019-05-05 20:29] VITALS: BP 110/64
[2019-05-06 04:15] VITALS: BP 110/61
--- NOTE | 2019-05-06 04:15 | NUR ---
PT MAKING SLOW PROGRESS TOWARDS GOALS. ON ROOM AIR THROUGHOUT THE NIGHT. NO SOA NOTED WHILE AT REST BUT DOES HAVE INCREASED WOB WITH AMBULATION. HE IS HOPING THAT HIS INR WILL BE THERAPEUTIC SO THAT HE CAN DISCHARGE TODAY.
[2019-05-06 04:50] LABS: APTT 75.9 Seconds (24.5-32.8); INR 2.1; PROTIME 21.4 Seconds (9.3-11.4)
[2019-05-06 08:03] VITALS: BP 130/62
[2019-05-06] MEDS ORDERED: COUMADIN 5 MG TA5 M1 PO (11:49)
[2019-05-06] MEDS ORDERED: COUMADIN 2 MG TA2 M1 PO (11:49)
[2019-05-06] MEDS ORDERED: ATENOLOL 50MG T50 MG PO (11:50)
[2019-05-06 11:55] VITALS: BP 130/62
--- NOTE | 2019-05-06 15:00 | NUR ---
off heparin at 1220. inr 2.1. dc to home soon.
--- NOTE | 2019-05-06 15:40 | NUR ---
DISCHARGE NOTE: SW reviewed chart and spoke with nursing. Pt is medically stable for discharge home today. No orders written for services. Pt to follow up with cardiology on Thursday, 05/09 for INR check. SW met with pt at bedside to discuss discharge plan. Pt is agreeable with plan. Pt's family provide transportation home. SW is following to assist should needs arise.
== END 2019-05-06 15:28 | disposition home health service (06) | DRG 987 ==
LOC: ER 19:51 → EROBS 21:21 → ICU 21:21 → 3W 21:21 → ICU 23:40 → 3W 04-22 17:02
PROVIDERS: Emergency Medicine; Internal Medicine; Internal Medicine Gastroenterology; Internal Medicine Geriatric Medicine; Nurse Practitioner Acute Care; Pediatrics; Specialist; Surgery; ADMIT Internal Medicine
PROC: BF121ZZ Fluoroscopy of Gallbladder using Low Osmolar Contrast (ICD-10-PCS; principal; 2019-04-22)
PROC: 0FT44ZZ Resection of Gallbladder, Percutaneous Endoscopic Approach (ICD-10-PCS; principal; 2019-04-22)
DX: I26.99 Other pulmonary embolism without acute cor pulmonale (principal); J96.01 Acute respiratory failure with hypoxia; E43 Unspecified severe protein-calorie malnutrition; K80.10 Calculus of gallbladder with chronic cholecystitis without obstruction; I42.9 Cardiomyopathy, unspecified; I48.92 Unspecified atrial flutter; I50.30 Unspecified diastolic (congestive) heart failure; F32.9 Major depressive disorder, single episode, unspecified; E80.6 Other disorders of bilirubin metabolism; F41.9 Anxiety disorder, unspecified; E78.5 Hyperlipidemia, unspecified; G47.33 Obstructive sleep apnea (adult) (pediatric); D50.0 Iron deficiency anemia secondary to blood loss (chronic); I25.10 Atherosclerotic heart disease of native coronary artery without angina pectoris; E11.22 Type 2 diabetes mellitus with diabetic chronic kidney disease; E66.9 Obesity, unspecified; K76.0 Fatty (change of) liver, not elsewhere classified; I48.0 Paroxysmal atrial fibrillation; Z86.010 Personal history of colon polyps; Z68.36 Body mass index [BMI] 36.0-36.9, adult; Z79.82 Long term (current) use of aspirin; Z79.899 Other long term (current) drug therapy; Z82.49 Family history of ischemic heart disease and other diseases of the circulatory system; Z98.84 Bariatric surgery status
CPT/HCPCS: 10078; 10080; 10203; 10779; 10879; 50010; 50101; 50411; 50555; 50558; 51489; 53307; 53310; 53312; 55245; 55317; 56462; 56525; 62110; 62900; 65131; 70005

== ENCOUNTER → 2019-05-20 | Outpatient (CLI) | payer OTHER, MEDICARE ==
[~2019-05-20] MED LIST changes: +ATENOLOL 50MG T50 MG PO; +BUPROPION XL300 MG PO; +COUMADIN 2 MG TA2 M1 PO; +COZAAR 25 MG TA25 M1 PO; +DILTIAZEM ER180 M2 PO; +LOVASTATIN 20 M20 MG PO; +PROTONIX40 M2 PO; +TRAZODONE 150150 M1 PO
== END ==
LOC: MRI 13:16
DX: M47.22 Other spondylosis with radiculopathy, cervical region (principal); M48.04 Spinal stenosis, thoracic region; M51.24 Other intervertebral disc displacement, thoracic region; M47.814 Spondylosis without myelopathy or radiculopathy, thoracic region; M25.78 Osteophyte, vertebrae; M48.02 Spinal stenosis, cervical region

== ENCOUNTER → 2019-05-23 | Outpatient (CLI) | payer OTHER, MEDICARE ==
[~2019-05-23] MED LIST changes: +COUMADIN 3 MG TA3 MG PO; +DILTIAZEM ER PO; -DILTIAZEM ER180 M2 PO
== END ==
LOC: SJCVC 09:06
DX: Z51.81 Encounter for therapeutic drug level monitoring (principal); I48.0 Paroxysmal atrial fibrillation; I25.10 Atherosclerotic heart disease of native coronary artery without angina pectoris; E78.5 Hyperlipidemia, unspecified; I10 Essential (primary) hypertension; I25.5 Ischemic cardiomyopathy; Z79.01 Long term (current) use of anticoagulants

== ENCOUNTER → 2019-05-30 | Outpatient (CLI) | payer OTHER, MEDICARE | LOC: SJCVC 10:13 | DX: Z51.81 Encounter for therapeutic drug level monitoring (principal); I48.0 Paroxysmal atrial fibrillation; I25.10 Atherosclerotic heart disease of native coronary artery without angina pectoris; I10 Essential (primary) hypertension; E78.5 Hyperlipidemia, unspecified; Z79.01 Long term (current) use of anticoagulants ==

== ENCOUNTER → 2019-06-09 | Outpatient (CLI) | payer OTHER, MEDICARE ==
[~2019-06-09] VITALS: Ht 185.4 cm; Wt 119.4 kg
--- NOTE | ~2019-06-09 | HPC ---
[facility] [place] [address] PAIN MANAGEMENT CONSULTATION Name: FADI ELLIOTT Room #: REG [facility] [place].#: [id number] Admission: 06/09/19 Attend Phys: Vick Ventura MD Discharge: Date of : 54 Report #: [id number] THIS REPORT FOR: //name// CC: Seferino Ventura DATE OF SERVICE: 06/09/2019 CHIEF COMPLAINT: Cervical radiculopathy. This is a return visit for the patient, but he was last seen in 06/2018 for knee problem. I have treated him in the past for cervical radiculopathy. He returns today complaining of severe pain, 8/10 in the neck that radiates into both shoulders and down into the arm thumb, first and second fingers. He has numbness and tingling. He complains that the pain began in earnest several weeks ago. He has been able to get control with pain medication. He was hospitalized for atrial fibrillation with happen with rapid ventricular response. He then developed some blood clots. He had pulmonary embolus. Surprisingly he discontinued his Coumadin knowing that he needed to be off of it for an epidural injection. He is now here today hoping for an epidural injection with a normal INR. PAST MEDICAL HISTORY: Significant for hypertension, congestive heart failure. He has dealt with depression and anxiety in the past. He has had laparoscopic cholecystectomy and a gastric bypass in 2014. The episode of atrial fibrillation with rapid ventricular response, which within the last month. SOCIAL HISTORY: Denies use of tobacco was a former smoker. Continues to drink alcohol in the social setting. PHYSICAL EXAMINATION: Blood pressure 115/59, heart rate 57, respirations 18, O2 sat is 96, BMI is 34.7. Moves independently from sitting to standing position; as he ambulates, he gets a little bit short of breath. His chest is clear; however, there is no expiratory wheezing. Some decreased breath sounds in the bases. CARDIAC: Rhythm is regular today. I did not hear an atrial fibrillation rhythm. ABDOMEN: Obese and tender. Examination of the neck revealed pain with neck flexion, extension, rotation, and [id number] tilt. Pain radiates into the left arm. He has decreased leadite heater strength on the left, decreased biceps and triceps strength in the left in comparison to the right. His pain he says, however, is symmetrical. He has numbness subjectively in the C7 distribution as well as in the C6 distribution. DIAGNOSTIC DATA: MRI scan from 05/20/2019 shows severe [place] [address] PAIN MANAGEMENT CONSULTATION Name: FADI ELLIOTT Room #: REG [facility].#: [id number] Admission: 06/09/19 Attend Phys: Vick Ventura MD Discharge: Date of : 54 Report #: [id number] to 6.7 mm at C5-C6 with bilateral foraminal narrowing. There is also narrowing of the neural foramina at that level. RECOMMENDATIONS: Cervical epidural injection under fluoroscopic guidance. PROCEDURE: After informed consent, he was taken to the fluoroscopic suite, placed prone, skin prepped with ChloraPrep. Skin anesthetized over C6-C7. A 20-gauge Tuohy epidural needle advanced first attempt into the epidural space with loss of resistance technique. There was no blood or CSF aspirated. A 1 mL of Omnipaque was injected. Good spread of dye observed into the epidural space followed by 3 mL of 0.5% lidocaine mixed with 80 mg of triamcinolone. He tolerated the procedure well and was observed for 45 minutes and discharged. Followup visit in one month. No medications were ordered. By: 1646 [id number] Vick Ventura MD /nt
[2019-06-09 14:12] VITALS: BP 115/59
[2019-06-09 14:21] LABS: PROTIME 10.6 Seconds (9.3-11.4)
--- NOTE | 2019-06-09 14:52 | NUR ---
Pain Clinic Assessment: 1. History of Osteoarthritis: Not Applicable History of Rheumatoid Arthritis: Not Applicable 2. Height: 6 ft. 1 in. 185.4 cm. Weight: 263.2 lb. oz. 119.387 kg. Patient's BMI: 34.7 3. Vital Signs: BP: 115/59 Pulse: 57 Resp: 14 Temp: 02 Sat: 96 ECG Mon: 4. Pain Intensity: 8-8 5. Fall Risk: Dizziness: Y Needs help standing or walking: N Fallen in the last 3 months: Y Fall risk comments: 6. Patient on Blood Thinner: Warfarin (Coumadin) 7. History of Hypertension: N 8. Opioid Therapy greater than 6 weeks: N Opiate Contract Signed: 9. Risk Assessment Tool Provided: 10. Functional Assessment Tool: 11. Recreational Drug Use: Never Drug Type: Tobacco Use: Former Smoker Tobacco Type: Amount or Packs/day: How Many Years: Alcohol Use: Yes Frequency: Quant:
== END | disposition home or self-care (01) ==
LOC: PAIN 06:47
PROVIDERS: Anesthesiology Pain Medicine
DX: M54.12 Radiculopathy, cervical region (principal); G89.29 Other chronic pain; I11.0 Hypertensive heart disease with heart failure; I50.9 Heart failure, unspecified; I48.91 Unspecified atrial fibrillation; F32.9 Major depressive disorder, single episode, unspecified; F41.9 Anxiety disorder, unspecified; Z98.890 Other specified postprocedural states; Z87.442 Personal history of urinary calculi; Z86.711 Personal history of pulmonary embolism; Z79.01 Long term (current) use of anticoagulants; Z87.891 Personal history of nicotine dependence; Z90.49 Acquired absence of other specified parts of digestive tract; Z79.899 Other long term (current) drug therapy

== ENCOUNTER → 2019-06-21 | Outpatient (CLI) | payer OTHER, MEDICARE | LOC: SJCVC 16:15 | DX: Z51.81 Encounter for therapeutic drug level monitoring (principal); I48.0 Paroxysmal atrial fibrillation; I25.10 Atherosclerotic heart disease of native coronary artery without angina pectoris; I10 Essential (primary) hypertension; E78.5 Hyperlipidemia, unspecified; Z79.01 Long term (current) use of anticoagulants ==

== ENCOUNTER 2019-08-11 13:31 | Emergency (ER) | payer OTHER, MEDICARE ==
[~2019-08-11] VITALS: Ht 182.9 cm; Wt 113.4 kg
[2019-08-11 14:55] LABS: ABSOLUTE NEUTROPHILS 3.5 thou/uL (1.4-8.2); BASOPHILS 1.1 % (0.0-2.0); HEMATOCRIT 45.2 % (42.0-52.0); HEMOGLOBIN 14.5 gm/dL (14.0-18.0); LYMPHOCYTES 37.5 % (24.0-44.0); MCH 28.3 pg (26.0-34.0); MCV 88.3 fL (80.0-100.0); MONOCYTES 9.2 % (1.0-8.0); PLATELET COUNT 344 thou/uL (150-400); POLYS 48.2 % (36.0-66.0); RBC 5.12 mil/uL (4.50-6.00); RDW 18.2 % (10.5-14.5); WBC 7.2 thou/uL (4.0-11.0)
--- NOTE | 2019-08-11 15:12 | EKG ---
[facility] [place] [address] ELECTROCARDIOGRAM REPORT Name: FADI ELLIOTT BABAR Room #: REG [facility].#: [id number] Admission: 08/11/19 Attend Phys: Discharge: Date of : 54 Report #: [id number] THIS REPORT FOR: cc: Seferino Conde MD, Christopher B. MD Couchonnal, Luis F. 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
[2019-08-11 15:15] LABS: ANION GAP 7 mmol/L (7-16); BUN 21 mg/dL (7-18); CALCIUM 9.2 mg/dL (8.5-10.1); CHLORIDE 103 mmol/L (98-107); CO2 30 mmol/L (21-32); CREATININE 0.9 mg/dL (0.7-1.3); GLUCOSE 167 mg/dL (74-106); POTASSIUM 4.1 mmol/L (3.5-5.1); SODIUM 140 mmol/L (136-145)
[2019-08-11 15:17] LABS: APTT 42.7 Seconds (24.5-32.8); INR 2.3; PROTIME 23.5 Seconds (9.3-11.4)
[2019-08-11 15:18] LABS: ANISOCYTOSIS 1+
[2019-08-11 15:24] LABS: ALBUMIN 3.6 g/dL (3.4-5.0); SGOT 17 U/L (15-37); SGPT 27 U/L (30-65); TOTAL BILIRUBIN 0.6 mg/dL (<0.1-1.0); TROPONIN-I <0.06 ng/mL (<0.06)
[2019-08-11 15:51] VITALS: BP 99/65
== END 2019-08-11 15:52 | disposition home or self-care (01) ==
LOC: ER 13:31
PROVIDERS: Physician Assistant
DX: R06.02 Shortness of breath (principal); I11.0 Hypertensive heart disease with heart failure; I48.91 Unspecified atrial fibrillation; I50.9 Heart failure, unspecified; F32.9 Major depressive disorder, single episode, unspecified; F41.9 Anxiety disorder, unspecified; Z90.49 Acquired absence of other specified parts of digestive tract; Z87.891 Personal history of nicotine dependence

== ENCOUNTER 2019-09-23 14:04 | Inpatient (IN) | payer OTHER, MEDICARE ==
[~2019-09-23] VITALS: Ht 182.9 cm; Wt 117.5 kg
[2019-09-23 14:16] VITALS: BP 127/102
[2019-09-23 14:35] LABS: ABSOLUTE NEUTROPHILS 7.4 thou/uL (1.4-8.2); BASOPHILS 0.4 % (0.0-2.0); EOSINOPHILS 1.7 % (0.0-3.0); HEMATOCRIT 49.5 % (42.0-52.0); HEMOGLOBIN 16.6 gm/dL (14.0-18.0); LYMPHOCYTES 17.8 % (24.0-44.0); MCH 30.1 pg (26.0-34.0); MCHC 33.6 g/dL (28.0-37.0); MCV 89.6 fL (80.0-100.0); MONOCYTES 10.7 % (1.0-8.0); PLATELET COUNT 334 thou/uL (150-400); POLYS 69.4 % (36.0-66.0); RBC 5.53 mil/uL (4.50-6.00); RDW 16.8 % (10.5-14.5); WBC 10.6 thou/uL (4.0-11.0)
[2019-09-23 14:48] LABS: INR 1.1; PROTIME 11.4 Seconds (9.3-11.4)
[2019-09-23 15:06] LABS: ANION GAP 13 mmol/L (7-16); BUN 68 mg/dL (7-18); CHLORIDE 97 mmol/L (98-107); CO2 24 mmol/L (21-32); CREATININE 2.3 mg/dL (0.7-1.3); GLUCOSE 255 mg/dL (74-106); POTASSIUM 3.4 mmol/L (3.5-5.1); SODIUM 134 mmol/L (136-145)
[2019-09-23 15:16] LABS: ALBUMIN 3.4 g/dL (3.4-5.0); SGOT 43 U/L (15-37); SGPT 60 U/L (30-65); TOTAL BILIRUBIN 1.3 mg/dL (<0.1-1.0); TOTAL PROTEIN 7.2 g/dL (6.4-8.2); TROPONIN-I <0.06 ng/mL (<0.06)
--- NOTE | 2019-09-23 16:21 | EKG ---
[facility] [place] [address] ELECTROCARDIOGRAM REPORT Name: FADI ELLIOTT Room #: REG [facility].#: [id number] Admission: 09/23/19 Attend Phys: Discharge: Date of : 54 Report #: [id number] THIS REPORT FOR: cc: Seferino Conde MD, Christopher B. MD Lundgren,Keyon More MD 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 09/23/19 1619 1455 1455 Keyon Treadwell MD, [facility] /EPI
[2019-09-23] MEDS ORDERED: DULOXETINE HCL30 MG PO (17:37)
[2019-09-23 20:00] VITALS: BP 97/53
[2019-09-23 22:12] VITALS: BP 108/74
[2019-09-23 22:30] VITALS: BP 107/84
[2019-09-23 23:00] VITALS: BP 108/68
[2019-09-23 23:31] VITALS: BP 117/75
[2019-09-24] VITALS (43 sets, daily range): BP systolic 90–126; BP diastolic 56–84
[2019-09-24 06:00] LABS: HEMATOCRIT 41.7 % (42.0-52.0); MCH 29.5 pg (26.0-34.0); MCHC 32.3 g/dL (28.0-37.0); MCV 91.5 fL (80.0-100.0); PLATELET COUNT 290 thou/uL (150-400); RBC 4.56 mil/uL (4.50-6.00); RDW 16.9 % (10.5-14.5)
[2019-09-24 06:07] LABS: HEMOGLOBIN 13.5 gm/dL (14.0-18.0)
[2019-09-24 06:31] LABS: ALBUMIN 2.6 g/dL (3.4-5.0); CALCIUM 7.8 mg/dL (8.5-10.1); MAGNESIUM 2.1 mg/dL (1.8-2.4); POTASSIUM 3.2 mmol/L (3.5-5.1); TOTAL PROTEIN 5.8 g/dL (6.4-8.2)
[2019-09-24 06:34] LABS: CREATININE 1.1 mg/dL (0.7-1.3)
[2019-09-24 09:57] LABS: ANISOCYTOSIS 1+
[2019-09-25] VITALS (27 sets, daily range): BP systolic 107–164; BP diastolic 58–105
[2019-09-25 04:59] LABS: HEMATOCRIT 40.9 % (42.0-52.0); HEMOGLOBIN 13.1 gm/dL (14.0-18.0); MCH 29.3 pg (26.0-34.0); MCHC 32.1 g/dL (28.0-37.0); MCV 91.2 fL (80.0-100.0); RBC 4.49 mil/uL (4.50-6.00); RDW 17.3 % (10.5-14.5); WBC 6.7 thou/uL (4.0-11.0)
[2019-09-25 05:22] LABS: ALBUMIN 2.5 g/dL (3.4-5.0); CALCIUM 7.8 mg/dL (8.5-10.1); CREATININE 0.8 mg/dL (0.7-1.3); MAGNESIUM 1.9 mg/dL (1.8-2.4); POTASSIUM 3.2 mmol/L (3.5-5.1); TOTAL BILIRUBIN 0.9 mg/dL (<0.1-1.0); TOTAL PROTEIN 5.7 g/dL (6.4-8.2)
[2019-09-26] VITALS (25 sets, daily range): BP systolic 105–159; BP diastolic 76–113
[2019-09-26 05:35] LABS: ABSOLUTE NEUTROPHILS 4.3 thou/uL (1.4-8.2); BASOPHILS 0.6 % (0.0-2.0); EOSINOPHILS 5.2 % (0.0-3.0); HEMATOCRIT 40.6 % (42.0-52.0); HEMOGLOBIN 13.5 gm/dL (14.0-18.0); LYMPHOCYTES 25.9 % (24.0-44.0); MCH 30.2 pg (26.0-34.0); MCHC 33.2 g/dL (28.0-37.0); MCV 90.8 fL (80.0-100.0); MONOCYTES 11.2 % (1.0-8.0); PLATELET COUNT 296 thou/uL (150-400); POLYS 57.1 % (36.0-66.0); RBC 4.48 mil/uL (4.50-6.00); RDW 17.3 % (10.5-14.5); WBC 7.5 thou/uL (4.0-11.0)
[2019-09-26 05:45] LABS: ALBUMIN 2.6 g/dL (3.4-5.0); CALCIUM 8.3 mg/dL (8.5-10.1); CREATININE 0.9 mg/dL (0.7-1.3); MAGNESIUM 1.8 mg/dL (1.8-2.4); POTASSIUM 3.5 mmol/L (3.5-5.1); TOTAL BILIRUBIN 0.7 mg/dL (<0.1-1.0); TOTAL PROTEIN 5.9 g/dL (6.4-8.2)
--- NOTE | 2019-09-26 10:05 | 2DMMODE ---
[facility] [place] [address] 2 D/M-MODE ECHOCARDIOGRAM Name: FADI ELLIOTT Room #: 244-P ADM IN M.R.#: [id number] Admission: 09/23/19 Attend Phys: Harry Matthews MD Discharge: Date of : 54 Report #: [id number] THIS REPORT FOR: cc: Seferino Conde MD, Christopher B. MD Lundgren, Craig H. MD [facility] ~ APPROVED REPORT Study performed: 09/26/2019 09:07:49 EXAM: Comprehensive 2D, Doppler, and color-flow Echocardiogram Patient Location: ICU Room #: 244 Status: routine BSA: 2.35 HR: 126 bpm BP: 139/83 mmHg Rhythm: Atrial Fibrillation Other Information Study Quality: Adequate Technically limited study due to lung artifact. Indications Hypotension Diastolic heart failure. Hx: CHF, HTN, HLP, DM, Afib. 2D Dimensions RVDd: 33.75 mm IVSd: 10.99 (7-11mm) LVOT Diam: 21.74 (18-24mm) LVDd: 52.00 mm PWd: 10.23 (7-11mm) Ascending Ao: 43.74 (22-36mm) LVDs: 40.39 (25-40mm) Aortic Root: 34.62 mm Volumes Left Atrial Volume (Systole) Single Plane 4CH: 118.74 mL Single Plane 2CH: 111.44 mL LA ESV Index: 51.00 mL/m2 Aortic Valve AoV Peak Rodrigo.: 1.62 m/s [facility] [address] [address] 2 D/M-MODE ECHOCARDIOGRAM Name: ELLIOTTFADIJUDY ECKERT Room #: 244-P ADM IN M.R.#: [id number] Admission: 09/23/19 Attend Phys: Harry Matthews MD Discharge: Date of : 54 Report #: [id number] AO Peak Gr.: 10.96 mmHg LVOT Max P.46 mmHg LVOT Max V: 1.26 m/s YUMIKO Vmax: 2.89 cm2 Mitral Valve MV Decel. Time: 180.93 ms MV E Max Rodrigo.: 1.24 m/s Pulmonary Valve PV Peak Rodrigo.: 1.01 m/s PV Peak Gr.: 4.06 mmHg Tricuspid Valve TR Peak Rodrigo.: 2.71 m/s RAP Estimate: 10.00 mmHg TR Peak Gr.: 30.00 mmHg PA Pressure: 40.00 mmHg Left Ventricle The left ventricle is normal size. There is normal LV segmental wall motion. There is normal left ventricular wall thickness. The left ventricular systolic function is at the lower limits of normal. LVEF is 50%. This study is not technically sufficient to allow evaluation of the LV diastolic function due to atrial fibrillation. Right Ventricle The right ventricle is normal size. Right ventricle is mildly hypokinetic. Atria Left atrium is severely dilated. Right atrium is mildly dilated. Aortic Valve Aortic valve is midly calcified. No aortic regurgitation is present. There is no aortic valvular stenosis. Mitral Valve The mitral valve is normal in structure. Mild to moderate mitral regurgitation. No evidence of mitral valve stenosis. Tricuspid Valve The tricuspid valve is normal in structure. Mild to moderate tricuspid regurgitation. Estimated PAP is 40mmHg. Pulmonic Valve Pulmonic valve is not well visualized. [facility] [place] [address] 2 D/M-MODE ECHOCARDIOGRAM Name: FADI ELLIOTT BABAR Room #: 244-P ADM IN M.R.#: [id number] Admission: 09/23/19 Attend Phys: Harry Matthews MD Discharge: Date of : 54 Report #: [id number] Great Vessels The aortic root is normal in size. 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 IVC is dilated and collapses <50% with inspiration. Pericardium There is no pericardial effusion. <Conclusion> The left ventricular systolic function is at the lower limits of normal. There is normal LV segmental wall motion. LVEF is 50%. Both atria are dilated. Aortic valve is midly calcified. No aortic regurgitation or stenosis The mitral valve is normal in structure. Mild to moderate mitral regurgitation. Mild to moderate tricuspid regurgitation. Estimated pulmonary artery pressure of 40mmHg. 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 There is no pericardial effusion. <ELECTRONICALLY SIGNED> By: Keyon Treadwell MD, [facility] 09/26/19 100 02 100 Keyon Treadwell MD, FAC /INF
[2019-09-26 18:37] LABS: INR 1.1; PROTIME 11.1 Seconds (9.3-11.4)
[2019-09-27] VITALS (18 sets, daily range): BP systolic 115–179; BP diastolic 78–109
[2019-09-27 14:09] LABS: INR 1.1; PROTIME 10.9 Seconds (9.3-11.4)
[2019-09-28 04:07] LABS: HEMATOCRIT 42.3 % (42.0-52.0); HEMOGLOBIN 13.7 gm/dL (14.0-18.0); MCH 29.5 pg (26.0-34.0); MCHC 32.3 g/dL (28.0-37.0); MCV 91.3 fL (80.0-100.0); RBC 4.64 mil/uL (4.50-6.00); RDW 17.2 % (10.5-14.5); WBC 6.8 thou/uL (4.0-11.0)
[2019-09-28 04:16] LABS: CALCIUM 8.3 mg/dL (8.5-10.1); CREATININE 0.8 mg/dL (0.7-1.3); POTASSIUM 3.4 mmol/L (3.5-5.1)
[2019-09-28 04:26] LABS: INR 1.2; PROTIME 12.1 Seconds (9.3-11.4)
[2019-09-28 04:45] VITALS: BP 141/87
[2019-09-28 07:45] VITALS: BP 127/87
[2019-09-28 11:20] VITALS: BP 126/94
[2019-09-28 16:43] VITALS: BP 111/79
[2019-09-28 19:47] VITALS: BP 126/80
[2019-09-29] VITALS (7 sets, daily range): BP systolic 101–146; BP diastolic 64–75
[2019-09-29 06:19] LABS: CALCIUM 8.1 mg/dL (8.5-10.1); CREATININE 0.9 mg/dL (0.7-1.3); POTASSIUM 3.9 mmol/L (3.5-5.1)
[2019-09-29 06:26] LABS: INR 1.2; PROTIME 11.8 Seconds (9.3-11.4)
[2019-09-29] MEDS ORDERED: LOPERAMIDE 2 MG2 M1 PO (10:29)
[2019-09-30 04:45] VITALS: BP 122/60
[2019-09-30 05:48] LABS: INR 1.2; PROTIME 12.7 Seconds (9.3-11.4)
[2019-09-30 08:03] VITALS: BP 150/78
[2019-09-30] MEDS ORDERED: PACERONE 200 M200 M1 PO ×2 (08:24)
[2019-09-30 12:05] VITALS: BP 126/79; BP 128/77; BP 136/84
[2019-09-30 16:24] VITALS: BP 137/72
[2019-09-30 20:42] VITALS: BP 131/73; BP 137/73
[2019-09-30 20:43] VITALS: BP 118/71
[2019-10-01 05:04] VITALS: BP 153/66
[2019-10-01 05:53] LABS: INR 1.5; PROTIME 15.1 Seconds (9.3-11.4)
[2019-10-01 08:00] VITALS: BP 137/69
[2019-10-01 14:07] VITALS: BP 153/66
== END 2019-10-01 13:00 | disposition home or self-care (01) | DRG 391 ==
LOC: ER 14:04 → EROBS 17:53 → ICU 17:53 → 2N 09-27 17:00
PROVIDERS: Hospitalist; Physician Assistant; ADMIT Internal Medicine
PROC: 02HV33Z Insertion of Infusion Device into Superior Vena Cava, Percutaneous Approach (ICD-10-PCS; principal; 2019-09-23)
PROC: B548ZZA Ultrasonography of Superior Vena Cava, Guidance (ICD-10-PCS; principal; 2019-09-23)
DX: K52.9 Noninfective gastroenteritis and colitis, unspecified (principal); R57.1 Hypovolemic shock; E43 Unspecified severe protein-calorie malnutrition; N17.0 Acute kidney failure with tubular necrosis; S22.39XA Fracture of one rib, unspecified side, initial encounter for closed fracture; I48.92 Unspecified atrial flutter; I48.21 Permanent atrial fibrillation; S02.2XXA Fracture of nasal bones, initial encounter for closed fracture; E66.01 Morbid (severe) obesity due to excess calories; I25.10 Atherosclerotic heart disease of native coronary artery without angina pectoris; I10 Essential (primary) hypertension; F32.9 Major depressive disorder, single episode, unspecified; F41.9 Anxiety disorder, unspecified; I95.9 Hypotension, unspecified; K76.0 Fatty (change of) liver, not elsewhere classified; G47.33 Obstructive sleep apnea (adult) (pediatric); I48.0 Paroxysmal atrial fibrillation; N62 Hypertrophy of breast; Z79.01 Long term (current) use of anticoagulants; Z90.49 Acquired absence of other specified parts of digestive tract; Z87.891 Personal history of nicotine dependence; W18.39XA Other fall on same level, initial encounter; Y93.89 Activity, other specified; Y92.89 Other specified places as the place of occurrence of the external cause; Y99.8 Other external cause status; Z20.828 Contact with and (suspected) exposure to other viral communicable diseases
CPT/HCPCS: 10078; 10081; 10203